=== PATIENT | male | born 1975 | race Caucasian/White ===

== ENCOUNTER 2020-09-22 08:57 | Inpatient (IN) | payer BC, SELFPAY ==
[2020-09-22] VITALS (24 sets, daily range): BP systolic 93–159; BP diastolic 33–130; PULSE 95–132; RESP 13–31; TEMP 35.7–36.9; O2SAT 91–99; BMI 69.9; BMI 69.5; BMI 69.6
--- NOTE | 2020-09-22 09:27 | ED.VIS.GEN ---
History of Present Illness Chief Complaint: Shortness of Breath Informant: Patient Onset: Days Context: Sudden Onset Timing: Continuous Quality: Rhinorrhea, congestion, dyspnea, productive cough dyspnea on exertion Location: Respiratory Current Severity: Mild Maximum Severity: Severe Worsened by: Walking. Patient has to stop after walking 100 yards, which is abnormal fo Relieved by: Nothing Associated Symptoms: No associated fever or chills. No known exposure to anyone infected Narrative: Patient is a 45-year-old male with a BMI of 70.0 who presents with rhinorrhea, congestion, postnasal drainage and productive cough of green-colored sputum for the past several days. He reports dyspnea at rest and dyspnea exertion. 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 He states that everyone is scant at work. He has not been tested for Covid. He denies myalgias or arthralgias. He denies loss of taste or smell. He denies headache. He denies visual, ocular auditory symptoms. He denies myalgias arthralgias. He does have obstructive sleep apnea and reports noncompliance with use of his CPAP machine. He denies history of asthma or COPD. Prior similar symptoms: No Recent Illness/Hospitalization: No Past Medical History - Allergies and Home Meds Allergies/Adverse Reactions: Allergies No Known Allergies Allergy (Verified 09/22/20 08:59) Primary Care Physician: Dieudonne Dinero MD [Primary Care Provider] - Lives: Alone - Patient is . Smoking Status: Never smoker Alcohol: None Drugs: None Review of Systems General: Reports: Malaise. Denies: Chills, Fever, Subjective, Sweats, Weight loss Eyes: Denies: Visual changes - bilaterally, Blurred Vision - bilaterally ENT: Reports: Rhinorrhea, Sore throat. Denies: Bilateral ear pain Cardiovascular: Denies: Chest pain, Palpitations Respiratory: Reports: Dyspnea, Cough, Sputum, Dyspnea on exertion. Denies: Orthopnea, Paroxysmal nocturnal dyspnea Gastrointestinal: Denies: Abdominal pain, Nausea, Vomiting, Diarrhea, Melena, Hematochezia Genitourinary: Denies: Dysuria, Hematuria, Frequency Musculoskeletal: Denies: Myalgias, Arthralgias, Neck pain, Back pain, Swelling, Extremity Pain, -, - Skin: Denies: Rash, Wounds Neurological: Denies: Headache, Weakness, Parasthesia Endocrine: Denies: Polyuria, Polydipsia Hematologic: Denies: Easy bruising, Easy bleeding Physical Exam Vital Signs/Narrative: Vital Signs Temp Pulse Resp BP Pulse Ox 09/22/20 08:59 96.2 F L 95 16 151/102 H 92 Inital Vital Signs reviewed: Yes General: Well nourished, Well developed, Obese, Acute Distress - He is in mild respiratory distress. He is breathing faster than 16 times a minute. Head: Normocephalic, Atraumatic Eyes: Perrl, EOMI. Negative for: Pale conjunctiva, Scleral icterus ENT: Moist mucous membranes, No rhinorrhea, TM's clear Neck: Supple, Nontender, No lymphadenopathy, No JVD, - - There is no inspiratory or expiratory stridor. Trachea is midline. Cardiovascular: Regular rate, Regular rhythm, No murmurs, Normal S1, Normal S2 Respiratory: Chest nontender, Wheezing, Decreased Air Movement. Negative for: No distress, CTA bilaterally Abdomen: Soft, Nontender, Nondistended, Normal bowel sounds Rectal: Deferred Back: Nontender Extremities: Nontender, Edema - Lymphedema bilaterally Skin: Normal color, No rash Neurological: Alert, Oriented x3, Cranial nerves II-XII grossly intact, Normal Strength, Normal Sensation Psychological: Normal affect Diagnostic/Tx/Re-eval Chest X-Ray - ED: 1 View, Read by ED Physician, Normal, Heart, Lungs, Mediastinum, Bony Structures, No Acute Disease, - - Single view portable chest x-ray was interpreted by me at 0950. Impressions Chest X-Ray 09/22/20 09:41 IMPRESSION: No active disease. Electronically Signed: Matheus Lynch MD at 9:55 EDT Tel , Service support , 09/22/20 09:41 Chest 1 View (Portable) [RAD] Stat 09/22/20 09:35 Nasal Secretion SARS-CoV-2 Antigen (Rapid) - Final Laboratory Results 09/22/20 09/22/20 09/22/20 09:25 09:25 09:25 WBC 6.6 RBC 4.79 Hgb 12.8 L Hct 42.1 MCV 87.9 MCH 26.7 L MCHC 30.4 L RDW Std Deviation 49.2 H RDW Coeff of Doming[place] 15.3 H Plt Count 188 MPV 10.5 Immature Gran % (Auto) 0.300 Neut % (Auto) 71.7 H Lymph % (Auto) 10.6 L [place] % (Auto) 10.1 H Eos % (Auto) 6.5 H Baso % (Auto) 0.8 Absolute Neuts (auto) 4.7 Absolute Lymphs (auto) 0.70 L Nucleated RBC % 0 Sodium 137 Potassium 3.9 Chloride 103 Carbon Dioxide 30.0 Anion Gap 4 L BUN 17 Creatinine 0.97 Estim Creat Clear Calc 97.21 Est GFR (MDRD) Af Amer 107 Est GFR (MDRD) Non-Af 88 BUN/Creatinine Ratio 17.6 Glucose 119 H Lactic Acid 1.0 Calcium 8.8 Total Bilirubin 0.70 AST 36 ALT 50 Alkaline Phosphatase 97 Total Protein 7.6 Albumin 3.5 Globulin 4.1 Albumin/Globulin Ratio 0.9 Work-up was unremarkable. When I entered the room to inform him of his test results monitor was beeping and reveals atrial fib with a ventricular rate of 1 55-1 70. A formal 12-lead EKG was ordered. - Rhythm Strip Rhythm Strip: A-fib Rate: 155 Ectopy: PVC(s) - Versus abbarant beats - EKG Initial EKG Interpretation: Atrial Fibrillation - Ventricular rate is 148. QRS duration 90 ms. QT duration 256 ms. [place] is normal. There is no ossific ST-T wave changes which may be rate dependent. - Medical Decision Making Diagnosis includes viral upper respiratory function with bronchospasm, Covid with bronchospasm, pneumonia and purulent bronchitis. Chest x-ray, appropriate labs and Covid test was obtained. Since he does have wheezing he was treated with metered-dose inhaler. Was placed in respiratory isolation. In light of patient's monitor reading atrial fibrillation with a rate between 150 and 170 and heart rate increasing to greater than 200 with minimal movement i.e. getting in and out of bed and concern of when this may of started cardiology was contacted. Discussed treatment with amiodarone versus Cardizem and anticoagulation. After discussion with Dr. Mendes plan is IV Cardizem and drip and Eliquis. 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
[2020-09-22 09:38] LABS: Absolute Neutrophil Count 4.7 X10^3/uL (2.0-7.7); Basophil# 0.05 X10^3/uL; Basophil% 0.8 % (0-1); Eosinophil# 0.43 X10^3/uL; Eosinophils% 6.5 % (0-5); Hematocrit 42.1 % (40-54); Hemoglobin 12.8 g/dL (13.0-16.5); Lymphocyte % 10.6 % (19-41); Mean Corp Hgb Conc 30.4 g/dL (32-36); Mean Corpuscular Hgb 26.7 pg (27.0-32.0); Mean Corpuscular Volume 87.9 fL (80-94); Mean Platelet Vol. 10.5 fl (6.2-12.0); Monocyte# 0.67 X10^3/uL; Monocyte% 10.1 % (0-10); NRBC Flagged by Analyzer 0 % (0-5); Neutrophil # 4.74 X10^3/uL (2.7-7.7); Neutrophil % 71.7 % (47-70); Platelet Count 188 K/mm3 (150-450); RBC Distribution Width CV 15.3 % (11.6-14.6); RBC Distribution Width SD 49.2 fl (35.1-43.9); Red Blood Count 4.79 M/mm3 (4.6-6.2); White Blood Count 6.6 K/mm3 (4.4-11.0)
--- NOTE | 2020-09-22 09:41 | RAD_ITS ---
STUDY: X-RAY CHEST REASON FOR EXAM: Male, 45 years old. cough TECHNIQUE: Single AP portable view of the chest. COMPARISON: None. FINDINGS: The lungs are clear and expanded. There is no demonstrated pleural abnormality. There is moderate cardiac enlargement. Normal mediastinum and yanci. Normal visualized pulmonary arteries. Normal visualized aortic arch and descending thoracic aorta. Normal visualized thoracic spine. Normal visualized ribs, clavicles, and shoulders. There is no demonstrated abnormality of the visualized soft tissue structures of the upper abdomen. RAD/Chest 1 View (Portable) IMPRESSION: No active disease. Electronically Signed: Matheus Lynch MD at 9:55 EDT Tel , Service support ,
[2020-09-22 09:54] LABS: ALB/GLOB Ratio 0.9 RATIO (0.9-2.4); AST(SGOT) 36 U/L (15-37); Alanine Aminotransfer ALT/SGPT 50 U/L (16-61); Albumin, Serum 3.5 g/dL (3.2-5.0); Alkaline Phosphatase 97 U/L (45-117); Anion Gap 4 (5-15); BUN 17 mg/dL (7-18); BUN/Creat Ratio 17.6 RATIO (10-20); Calcium,Total 8.8 mg/dL (8.5-10.1); Chloride 103 mmol/L (98-107); Creatinine, Serum 0.97 mg/dL (0.70-1.30); EST Glomerular Filtration Rate 88 mL/min (>60); Est Glom Filt Rate - Afr Amer 107 mL/min (>60); Estimated Creatinine Clearance 97.21 ml/min; Globulin 4.1 g/dL (2.2-4.2); Glucose 119 mg/dL (74-106); Potassium 3.9 mmol/L (3.5-5.1); Protein, Total 7.6 g/dL (6.4-8.2); Sodium Level 137 mmol/L (136-145)
--- NOTE | 2020-09-22 10:35 | EKG12_ITS ---
Test Reason : SOB Blood Pressure : / mmHG Vent. Rate : 148 BPM Atrial Rate : 147 BPM P-R Int : 000 ms QRS Dur : 090 ms QT Int : 256 ms P-R-T Axes : 000 077 -06 degrees QTc Int : 401 ms Atrial fibrillation Nonspecific T wave abnormality Abnormal ECG Confirmed by MANOHAR RODRÍGUEZ, BEV ([id number]), electronic news gathering editor FINESSE DURAN ([id number]) on 09/26/2020 8:26:49 AM Referred By: PEDRO Confirmed By:BEV VILLELA MD
--- NOTE | 2020-09-22 11:08 | HP.PCM_ITS ---
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 use (3) Acute bronchitis with bronchospasm Status: Acute (4) Morbid obesity with BMI of 70 and over, adult Status: Chronic (5) Obstructive sleep apnea Status: Chronic (6) Hypertension Status: Chronic Qualifiers: Hypertension type: essential hypertension Qualified Code(s): I10 - Essential (primary) hypertension History of Present Illness Date of Admission: 09/22/20 Chief Complaint: Rapid heart rate The patient is a 45 year old M with past medical history significant for obesity with BMI of 70, newly diagnosed diabetes mellitus type 2 essential hypertension who was sent from his primary care physician's with rapid heart rate. Patient was apparently being evaluated for acute bronchitis as well as new onset diabetes. While in the office patient was found to be tachycardic. Apart from shortness of breath patient denied any feeling of palpitations. In the ED patient was found to be in A. fib with RVR with heart rate as high as 160 did receive Cardizem bolus and subsequently started on IV Cardizem and admitted to monitored bed for further management Past Medical History Past Medical History (Chronic Problems): Chronic Problems Hypertension (Chronic) Morbid obesity with BMI of 70 and over, adult (Chronic) Obstructive sleep apnea (Chronic) DM2 (diabetes mellitus, type 2) (Chronic) Allergies No Known Allergies Allergy (Verified 09/22/20 08:59) Lives: Alone - Patient is . Smoking Status: Never smoker Alcohol: None Drugs: None - *Family History Maternal History Items: Cancer - Breast cancer; alive Review of Systems Constitutional: Denies: Anorexia, Chills, Fever, Night Sweats, Weight Change HEENT: Denies: Head Aches, Sinus Congestion, Sinus Drainage Cardiovascular: Denies: Chest Pain, Orthopnea, Palpitations, Paroxysmal Noc. Dyspnea Respiratory: Reports: Shortness of breath upon exertion, Wheezing Gastrointestinal: Denies: Abdominal Pain, Hematemesis, Hematochezia, Nausea, Melena, Vomiting Genitourinary: Denies: Dysuria, Frequency, Hematuria, Urgency Musculoskeletal: Denies: Joint Pain, Joint Tenderness Skin: Denies: Rash Neurological: Denies: Focal weakness, Numbness, Tingling Psychiatric: Denies: Homicidal Ideations, Suicidal Ideations Hematologic/ Lymphatic: Denies: Easy Bruising, Easy Bleeding VTE Information - Inpt Only VTE Present on Admission: No VTE Mechan Device Prophylaxis: None VTE Pharm Prophylaxis ordered?: Yes Patient Problems: Active and Suspected Problems New onset atrial fibrillation (Acute) Acute bronchitis with bronchospasm (Acute) Objective: GENERAL: cooperative HEENT: Atraumatic; EYES; Anicteric, Normal Conjunctiva NECK; supple, normal thyroid, RESPIRATORY: Diminished to auscultation CARDIOVASCULAR: Irregularly irregular, tachycardic GI: soft, normoactive bowel sounds, : No Renal angle tenderness; EXTREMITIES: No edema, no clubbing, MUSCULOSKELETAL: no muscle waisting NEURO: Awake; no lateralizing signs. SKIN: No Rash PSYCH; Flat affect - Physical Exam Vitals/I&O's: Vital Signs Temp Pulse Resp BP Pulse Ox 96.2 F L 95 16 151/102 H 92 09/22/20 08:59 09/22/20 08:59 09/22/20 08:59 09/22/20 08:59 09/22/20 08:59 Oxygen Delivery Method Room Air Weight: 221.3 kg Body Mass Index (BMI) 69.9 Microbiology Past 72 Hours 09/22/20 09:35 Nasal Secretion SARS-CoV-2 Antigen (Rapid) - Final Laboratory Results 09/22/20 09:25: WBC 6.6, RBC 4.79, Hgb 12.8 L, Hct 42.1, MCV 87.9, MCH 26.7 L, MCHC 30.4 L, RDW Std Deviation 49.2 H, RDW Coeff of Dominga 15.3 H, Plt Count 188, MPV 10.5, Immature Gran % (Auto) 0.300, Neut % (Auto) 71.7 H, Lymph % (Auto) 10.6 L, [place] % (Auto) 10.1 H, Eos % (Auto) 6.5 H, Baso % (Auto) 0.8, Absolute Neuts (auto) 4.7, Absolute Lymphs (auto) 0.70 L, Nucleated RBC % 0 09/22/20 09:25: Sodium 137, Potassium 3.9, Chloride 103, Carbon Dioxide 30.0, Anion Gap 4 L, BUN 17, Creatinine 0.97, Estim Creat Clear Calc 97.21, Est GFR (MDRD) Af Amer 107, Est GFR (MDRD) Non-Af 88, BUN/Creatinine Ratio 17.6, Glucose 119 H, Calcium 8.8, Total Bilirubin 0.70, AST 36, ALT 50, Alkaline Phosphatase 97, Total Protein 7.6, Albumin 3.5, Globulin 4.1, Albumin/Globulin Ratio 0.9 09/22/20 09:25: Lactic Acid 1.0 09/22/20 09:25: Troponin I Pending, TSH Pending Current Medications Diltiazem HCl 125 mg/ Dextrose 125 mls @ 5 mls/hr IV .Q25H ADRIEL; Protocol Assessment/Plan All Active Problems New onset atrial fibrillation (Acute) Acute bronchitis with bronchospasm (Acute) Patient is a 45-year-old gentleman admitted with rapid heart rate 1. New onset A. fib with RVR ?Admitted to monitored bed patient started on Cardizem drip titrated to keep rate less than 100. As part of patient's management ordered 2D echo, D-dimer, TSH, serial cardiac enzymes and consultation placed to cardiology. Patient was also placed on systemic anticoagulation with Eliquis 2. Acute bronchitis ?Patient rapid SARS-CoV-2 antigen test was negative in the ED plan is to treat patient symptomatically 3. Diabetes mellitus type 2 ?New onset. Patient was prescribed Metformin at home held placed on long-acting insulin and Accu-Cheks before meals and at bedtime with sliding scale coverage. Also ordered hemoglobin A1c 4. Essential hypertension ?Patient blood pressure controlled plan is to continue with home meds once reconciled 5. Morbid obesity ?With BMI of 70; Patient was advised on weight reduction. Was also instructed to follow-up with PCP for possible referral for gastric bypass 6. Obstructive sleep apnea ?Patient apparently not on any CPAP therapy at night 7. DVT prophylaxis ?Placed on Eliquis 5 mg p.o. twice daily as part of management of his A. fib Inpatient E&M: [id number] In Hosp L3
[2020-09-22 11:18] LABS: Thyroid Stim Hormone (TSH) 1.72 uIU/mL (0.358-3.74)
[2020-09-22] MEDS: dilTIAZem 25 MG/5 ML Vial 20 MG IV BOLUS (11:37)
[2020-09-22] MEDS: APIXABAN 5 MG TABLET PO ×2 (11:45→21:14)
--- NOTE | 2020-09-22 12:02 | ECHOCS_ITS ---
Reason For Study: AFIB Procedure This was a 2D Doppler, Color Flow transthoracic echocardiogram. The study was technically difficult. Contrast injection was performed. Exam performed portable in patient room. Left Ventricle Normal LV size. Moderate concentric left ventricular hypertrophy. Left ventricular systolic function is normal. The estimated ejection fraction is 55 %. Unable to assess diastolic dysfunction. No regional wall motion abnormalities noted. Right Ventricle Normal RV size. Normal systolic function. Atria The left atrium is mildly enlarged. Normal right atrium. No doppler evidence for ASD. Mitral Valve There is no mitral annular calcification. Normal mitral valve. Trivial mitral valve insufficiency. Tricuspid Valve Normal tricuspid valve. Trivial tricuspid valve insufficiency. Right ventricular systolic pressure estimated to be 37 mmHg. Aortic Valve Trisinus/trileaflet aortic valve. Normal aortic valve. Pulmonic Valve The pulmonic valve is not well visualized. Great Vessels Borderline enlarge aortic root. Pericardium/Pleural No pericardial effusion. Medication Diluted definity 3.5ml given slow IV push to enhance endocardial definition. MMode/2D Measurements & Calculations LVIDd: 5.4 cm IVSd: 1.5 cm Ao root diam: 3.9 cm LVIDs: 4.1 cm LVPWd: 1.5 cm RVDd: 4.4 cm FS: 24.0 % LAV(MOD-bp): 97.9 ml LA A4 area: 28.3 cm2 LA dimension(2D): 5.5 cm LAV(MOD-bp) Indexed: 32.1 ml/m2 LAV(MOD-sp2): 102.5 ml LAV(MOD-sp4): 92.3 ml RA A4 area: 30.9 cm2 Time Measurements MV dec time: 0.18 sec Doppler Measurements & Calculations MV E max alvin: 112.3 cm/sec Ao V2 max: 126.8 cm/sec LV V1 max: 86.2 cm/sec Ao max P.5 mmHg LV V1 max P.0 mmHg PA V2 max: 103.8 cm/sec TR max alvin: 290.7 cm/sec TR max P.8 mmHg ECHO/Echo Complete W/ Contrast Interpretation Summary The study was technically difficult. Contrast injection was performed. Left ventricular systolic function is normal. The estimated ejection fraction is 55 %. Moderate concentric left ventricular hypertrophy. The left atrium is mildly enlarged. Trivial mitral valve insufficiency. Trivial tricuspid valve insufficiency. Borderline enlarge aortic root. Right ventricular systolic pressure estimated to be 37 mmHg. Unable to assess diastolic dysfunction. Ordering Physician: Stalin Thorne Referring Physician: RAHAT WISDOM Performed By: Dorene Powers, MAIACS, RVT
[2020-09-22 12:29] LABS: D-Dimer Quantitative (DVT/PE) 0.92 FEU/ug/m (0.27-0.49)
--- NOTE | 2020-09-22 12:31 | CT_ITS ---
STUDY: CTA CHEST REASON FOR EXAM: Male, 45 years old. ELEVATED D DIMER RADIATION DOSAGE (If Supplied By Facility): CTDIvol = ( 35.72 ) mGy, DLP = ( 741.42 ) mGycm TECHNIQUE: The examination was performed with the intravenous administration of IV 100mL Isovue-370. Post-processing of the angiographic images was performed, with multiplanar reformation and 3D reconstruction. Individualized dose optimization techniques were used for this CT. COMPARISON: None. FINDINGS: Normal enhancement of the main pulmonary artery and right and left pulmonary arteries. Normal enhancement of the bilateral peripheral pulmonary arteries. There is no demonstrated pulmonary embolism. Normal thoracic aorta and visualized great vessels. There is no demonstrated aortic dissection. Normal heart and pericardium. Several small mediastinal lymph nodes which are likely reactive. Normal hilar regions. Normal visualized trachea and bronchi. The lungs are well expanded. Normal pulmonary parenchyma. Normal pleura. Normal chest wall structures. Normal osseous structures. Normal visualized upper abdomen. CT/CTA Chest W/WO Contrast IMPRESSION: Normal CTA chest examination, without a demonstrated pulmonary embolism or arterial dissection. Electronically Signed: Matheus Lynch MD at 13:48 EDT Tel , Service support ,
[2020-09-22] MEDS: guaiFENesin 10 ML UDC (200MG/10ML) 20 ML PO ×3 (12:41→21:13)
--- NOTE | 2020-09-22 13:49 | PCM.CONS.C ---
Reason for Consult Date of Consultation: 09/22/20 Reason for Consultation: Atrial fibrillation with rapid ventricular response. History of Present Illness: The patient is a 45 year old M [with diabetes, morbid obesity apparently presenting to the ER for bronchitis-like symptoms. Was found to be in A. fib with RVR. Patient has been admitted to the PCU for further management. He is on a Cardizem drip. ] Past Medical History Allergies/Adverse Reactions: Allergies No Known Allergies Allergy (Verified 09/22/20 08:59) Home Medications: Ambulatory Orders Medication Instructions Recorded Ergocalciferol (Vitamin D2) 1,250 mcg PO QWEEK 09/22/20 [Vitamin D2] Lisinopril [Zestril] 10 mg PO DAILY 09/22/20 Metformin HCl [Metformin ER 500 mg PO DAILY 09/22/20 Gastric] Past Medical History (Chronic Problems): Chronic Problems Hypertension (Chronic) Morbid obesity with BMI of 70 and over, adult (Chronic) Obstructive sleep apnea (Chronic) DM2 (diabetes mellitus, type 2) (Chronic) - *Family History Maternal History Items: Cancer - Breast cancer; alive Lives: Alone - Patient is . Smoking Status: Former smoker Alcohol: None Drugs: None Objective: Vital Signs Temp Pulse Resp BP Pulse Ox 98.1 F 121 H 24 H 105/78 97 09/22/20 12:12 09/22/20 13:30 09/22/20 13:30 09/22/20 13:30 09/22/20 13:36 Oxygen Delivery Method Room Air Weight: 485 lb Body Mass Index (BMI) 69.5 Intake and Output for Last 24 Hours 09/20/20 09/21/20 09/22/20 23:59 23:59 23:59 Intake Total 18.33 / 18.33 Balance 18.33 / 18.33 General: Awake, Alert, Oriented x 3 HEENT: Atraumatic Oral: Moist Mucosa Neck: Supple Cardiovascular: Irregular Rhythm Abdomen: Obese Psych/Mental Status: Appropriate 09/22/20 09:25: WBC 6.6, RBC 4.79, Hgb 12.8 L, Hct 42.1, MCV 87.9, MCH 26.7 L, MCHC 30.4 L, Plt Count 188, MPV 10.5, Immature Gran % (Auto) 0.300, Neut % (Auto) 71.7 H, Lymph % (Auto) 10.6 L, [place] % (Auto) 10.1 H, Eos % (Auto) 6.5 H, Baso % (Auto) 0.8, Absolute Neuts (auto) 4.7, Nucleated RBC % 0 09/22/20 09:25: Sodium 137, Potassium 3.9, Chloride 103, Carbon Dioxide 30.0, Anion Gap 4 L, BUN 17, Creatinine 0.97, Est GFR (MDRD) Af Amer 107, Est GFR (MDRD) Non-Af 88, BUN/Creatinine Ratio 17.6, Glucose 119 H, Calcium 8.8, Total Bilirubin 0.70 09/22/20 09:25: Lactic Acid 1.0 09/22/20 09:25: Troponin I < 0.015 09/22/20 09:25: D-Dimer Quant (PE/DVT) 0.92 H* 09/22/20 12:46: Troponin I < 0.015 Rhythm: EKG: ECHO: Stress Test: Cardiac Cath: PCI: CT Surgery: Holter monitor: EPS: PPM: CXR: Chest CT Scan: Assessment/Plan Atrial fibrillation: Titrate Cardizem drip for heart rate control. We will start the patient on p.o. Cardizem. We will also stop the Lovenox and start Eliquis. Discussed risks and benefits with the patient.
[2020-09-22 16:36] LABS: Bedside Glucose 92 mg/dL (70-110)
[2020-09-22] MEDS: dilTIAZem 60 MG Tablet PO ×2 (17:27→23:32)
[2020-09-22 21:50] LABS: Bedside Glucose 95 mg/dL (70-110)
[2020-09-22] MEDS: Albuterol 2.5 MG/3 ML VIAL.NEB. INHALATION (22:47)
[2020-09-22] MEDS: Budesonide Respules 0.5 MG/2 ML AMPUL.NEB. INHALATION (22:47)
[2020-09-23] VITALS (26 sets, daily range): BP systolic 100–140; BP diastolic 50–97; PULSE 77–102; RESP 16–26; TEMP 36.4–36.8; O2SAT 92–99
[2020-09-23] MEDS: MethylPREDNISolone 125 MG/2 ML Vial IV (00:22)
[2020-09-23] MEDS: 0.9% Saline Lock 10 ML Syringe IV ×3 (00:22→14:05)
[2020-09-23 05:01] LABS: Absolute Lymphocyte Count 0.45 X10^3/uL (0.83-4.51); Absolute Neutrophil Count 6.7 X10^3/uL (2.0-7.7); Basophil# 0.03 X10^3/uL; Basophil% 0.4 % (0-1); Eosinophil# 0.09 X10^3/uL; Eosinophils% 1.2 % (0-5); Hemoglobin 12.9 g/dL (13.0-16.5); Lymphocyte # 0.45 X10^3/ul (0.83-4.51); Lymphocyte % 5.9 % (19-41); Mean Corpuscular Hgb 27.3 pg (27.0-32.0); Mean Corpuscular Volume 91.1 fL (80-94); Monocyte# 0.27 X10^3/uL; Monocyte% 3.6 % (0-10); NRBC Flagged by Analyzer 0 % (0-5); Neutrophil # 6.71 X10^3/uL (2.7-7.7); Neutrophil % 88.4 % (47-70); POSITIVE DIFFERENTIAL YES; Platelet Count 197 K/mm3 (150-450); RBC Distribution Width CV 15.6 % (11.6-14.6); RBC Distribution Width SD 52.3 fl (35.1-43.9); Red Blood Count 4.72 M/mm3 (4.6-6.2); White Blood Count 7.6 K/mm3 (4.4-11.0)
[2020-09-23] MEDS: dilTIAZem 60 MG Tablet PO ×3 (05:01→17:07)
[2020-09-23] MEDS: guaiFENesin 10 ML UDC (200MG/10ML) 20 ML PO ×3 (05:07→20:54)
[2020-09-23 05:17] LABS: Anion Gap 3 (5-15); BUN 17 mg/dL (7-18); BUN/Creat Ratio 18.3 RATIO (10-20); Calcium,Total 8.8 mg/dL (8.5-10.1); Chloride 101 mmol/L (98-107); Creatinine, Serum 0.93 mg/dL (0.70-1.30); EST Glomerular Filtration Rate 93 mL/min (>60); Est Glom Filt Rate - Afr Amer 112 mL/min (>60); Estimated Creatinine Clearance 101.39 ml/min; Glucose 148 mg/dL (74-106); Magnesium 2.3 mg/dL (1.6-2.6); Phosphorus 4.4 mg/dL (2.5-4.9); Potassium 4.6 mmol/L (3.5-5.1); Sodium Level 135 mmol/L (136-145)
[2020-09-23 05:22] LABS: Differential Indicated SCAN CRITERIA MET
[2020-09-23] MEDS: Insulin Lispro 100 UNIT/ML INSULN.PEN SC ×4 (06:38→21:32)
[2020-09-23 06:55] LABS: Bedside Glucose 172 mg/dL (70-110)
[2020-09-23] MEDS: Budesonide Respules 0.5 MG/2 ML AMPUL.NEB. INHALATION ×2 (06:59→18:56)
[2020-09-23] MEDS: Albuterol 2.5 MG/3 ML VIAL.NEB. INHALATION (06:59)
[2020-09-23] MEDS: APIXABAN 5 MG TABLET PO ×2 (09:42→21:21)
--- NOTE | 2020-09-23 10:29 | PN_ITS ---
Patient Problems: Active and Suspected Problems New onset atrial fibrillation (Acute) Acute bronchitis with bronchospasm (Acute) Reason for Visit: New onset A. fib with RVR Subjective: Patient is a 45-year-old gentleman admitted with A. fib with RVR started on Cardizem drip admitted to monitored bed. Cardizem drip has since been weaned off patient currently on p.o. Cardizem. Patient remains in A. fib. Had elevated D-dimer CT of the chest subsequently ordered was negative for PE Objective: GENERAL: cooperative HEENT: Atraumatic; EYES; Anicteric, Normal Conjunctiva NECK; supple, normal thyroid, RESPIRATORY: Diminished to auscultation CARDIOVASCULAR: Irregularly irregular, GI: soft, normoactive bowel sounds, : No Renal angle tenderness; EXTREMITIES: No edema, no clubbing, MUSCULOSKELETAL: no muscle waisting NEURO: Awake; no lateralizing signs. SKIN: No Rash PSYCH; Flat affect Vitals/I&O's: Vital Signs Temp Pulse Resp BP Pulse Ox 97.9 F 94 24 H 120/62 94 09/23/20 06:00 09/23/20 10:00 09/23/20 10:00 09/23/20 10:00 09/23/20 10:00 Oxygen Flow Rate (L/min) 5 Oxygen Delivery Method Nasal Cannula Weight: 219.992 kg Body Mass Index (BMI) 69.5 Intake and Output for Last 24 Hours 09/21/20 09/22/20 09/23/20 23:59 23:59 23:59 Intake Total 820.83 / 1195.83 645.00 / 645.00 Output Total 0 / 0 Balance 820.83 / 1195.83 645.00 / 645.00 Microbiology Past 72 Hours 09/22/20 09:35 Nasal Secretion SARS-CoV-2 Antigen (Rapid) - Final Laboratory Results 09/22/20 09:25: Troponin I < 0.015, TSH 1.72 09/22/20 09:25: D-Dimer Quant (PE/DVT) 0.92 H* 09/22/20 12:46: Troponin I < 0.015 09/22/20 15:40: Troponin I < 0.015 09/22/20 16:30: POC Glucose 92 09/22/20 21:08: POC Glucose 95 09/23/20 04:45: WBC 7.6, RBC 4.72, Hgb 12.9 L, Hct 43.0, MCV 91.1, MCH 27.3, MC HC 30.0 L, RDW Std Deviation 52.3 H, RDW Coeff of Dominga 15.6 H, Plt Count 197, MPV 10.0, Immature Gran % (Auto) 0.500, Neut % (Auto) 88.4 H, Lymph % (Auto) 5.9 L, [place] % (Auto) 3.6, Eos % (Auto) 1.2, Baso % (Auto) 0.4, Absolute Neuts (auto) 6.7, Absolute Lymphs (auto) 0.45 L, Nucleated RBC % 0 09/23/20 04:45: Sodium 135 L, Potassium 4.6, Chloride 101, Carbon Dioxide 31.0, Anion Gap 3 L, BUN 17, Creatinine 0.93, Estim Creat Clear Calc 101.39, Est GFR (MDRD) Af Amer 112, Est GFR (MDRD) Non-Af 93, BUN/Creatinine Ratio 18.3, Glucose 148 H, Calcium 8.8, Phosphorus 4.4, Magnesium 2.3 09/23/20 06:35: POC Glucose 172 H Current Medications Acetaminophen (Acetaminophen 325 Mg Tablet) 650 mg PO Q6H PRN PRN PRN Reason: Pain Score 1-10/Temp > 100.7 F Al Hydroxide/Mg Hydroxide (Mag Hydrox/Al Hydrox/Simeth 30 Ml Udc) 30 ml PO Q6H PRN PRN PRN Reason: Gastric Burning Albuterol Sulfate (Albuterol 2.5 Mg/3 Ml Vial.Neb.) 2.5 mg INHALATION Q2H PRN PRN PRN Reason: SOB/Wheezing Last Admin: 09/23/20 06:59 Dose: 2.5 mg Documented by: Apixaban (Apixaban 5 Mg Tablet) 5 mg PO BID [facility] Last Admin: 09/23/20 09:42 Dose: 5 mg Documented by: Budesonide (Budesonide Respules 0.5 Mg/2 Ml Ampul.Neb.) 0.5 mg INHALATION BID.RT [facility] Last Admin: 09/23/20 06:59 Dose: 0.5 mg Documented by: Dextrose (Dextrose 50%-Water 25 Gm/50 Ml Disp.Syrin) 0 gm IV X1 PRN; Protocol PRN Reason: Hypoglycemia Diltiazem HCl (Diltiazem 60 Mg Tablet) 60 mg PO Q6 [facility] TO [facility] Last Admin: 09/23/20 05:01 Dose: 60 mg Documented by: Glucagon (Glucagon 1 Mg/Ml Syringe) 1 mg IM .X1 PRN PRN Reason: Hypoglycemia Guaifenesin (Guaifenesin 10 Ml Udc (200mg/10ml)) 20 ml PO Q4H PRN PRN PRN Reason: COUGH Last Admin: 09/23/20 05:07 Dose: 20 ml Documented by: Hydralazine HCl (Hydralazine 20 Mg/Ml Vial) 10 mg IV Q4H PRN PRN PRN Reason: Hypertensive Emergency Diltiazem HCl 125 mg/ Dextrose 125 mls @ 5 mls/hr IV .Q25H [facility]; Protocol Last Titration: 09/23/20 10:00 Dose: 15 mg/hr, 15 mls/hr Documented by: Sodium Chloride () 250 mls @ 15 mls/hr IV .[id number] PRN PRN Reason: Saline Flush Sodium Chloride () 250 mls @ 15 mls/hr IV .[id number] PRN PRN Reason: Additional IVPB Infusion Insulin Glargine (Insulin Glargine 100 Units/Ml Pen) 10 units SC QHS [facility] Last Admin: 09/22/20 22:34 Dose: Not Given Documented by: Insulin Human Lispro (Insulin Lispro 100 Unit/Ml Insuln.Pen) 0 unit SC ACHS [facility]; Protocol Last Admin: 09/23/20 06:38 Dose: 2 units Documented by: Melatonin (Melatonin 3 Mg Tablet) 3 mg PO QHS PRN PRN PRN Reason: INSOMNIA Methylprednisolone (Methylprednisolone 40 Mg/Ml Vial) 40 mg IV Q8 [facility] Last Admin: 09/23/20 05:02 Dose: 40 mg Documented by: Nitroglycerin (Nitroglycerin (Inpatient Use) 0.4 Mg Tab.Subl) 0.4 mg SL Q5M PRN PRN Reason: CARDIAC/CHEST PAIN Ondansetron HCl (Ondansetron 4 Mg/2 Ml Vial) 4 mg IV Q8H PRN PRN PRN Reason: NAUSEA/VOMITING Oxycodone HCl (Oxycodone 5 Mg Tablet) 5 mg PO Q4H PRN PRN PRN Reason: Pain Score 4-5 Oxycodone HCl (Oxycodone 5 Mg Tablet) 10 mg PO Q4H PRN PRN PRN Reason: Pain Score 6-10 Senna/Docusate Sodium (Senna/Docusate Sodium 1 Tablet) 2 tablet PO BID PRN PRN PRN Reason: Constipation Sodium Chloride (0.9% Saline Lock 10 Ml Syringe) 10 - 40 ml IV UD PRN PRN Reason: SALINE FLUSH Last Admin: 09/23/20 05:02 Dose: 10 ml Documented by: STROKE Vital Signs/Narrative: Vital Signs Pulse Resp BP Pulse Ox 09/23/20 10:00 94 24 H 120/62 94 09/23/20 09:00 92 22 H 114/65 93 09/23/20 08:00 87 19 H 130/95 H 96 09/23/20 07:00 78 21 H 122/78 H 96 09/23/20 06:59 102 H 20 H 94 Medical Necessity - Tobacco Use Smoking Status: Former smoker Assessment/Plan All Active Problems New onset atrial fibrillation (Acute) Acute bronchitis with bronchospasm (Acute) Patient is a 45-year-old gentleman admitted with rapid heart rate 1. New onset A. fib with RVR ?Admitted to monitored bed patient started on Cardizem drip titrated to keep rate less than 100. As part of patient's management ordered 2D echo, D-dimer, TSH, serial cardiac enzymes and consultation placed to cardiology. Patient was also placed on systemic anticoagulation with Eliquis -09/23/2020 patient is a 45-year-old gentleman admitted with A. fib with RVR started on Cardizem drip admitted to monitored bed. Cardizem drip has since been weaned off patient currently on p.o. Cardizem. Patient remains in A. fib. Had elevated D-dimer CT of the chest subsequently ordered was negative for PE scheduled to undergo 2D echo on 09/24/2020 2. Acute bronchitis ?Patient rapid SARS-CoV-2 antigen test was negative in the ED plan is to treat patient symptomatically 3. Diabetes mellitus type 2 ?New onset. Patient was prescribed Metformin at home held placed on long-acting insulin and Accu-Cheks before meals and at bedtime with sliding scale coverage. Also ordered hemoglobin A1c 4. Essential hypertension ?Patient blood pressure controlled plan is to continue with home meds once reconciled 5. Morbid obesity ?With BMI of 70; Patient was advised on weight reduction. Was also instructed to follow-up with PCP for possible referral for gastric bypass 6. Obstructive sleep apnea ?Patient apparently not on any CPAP therapy at night 7. DVT prophylaxis ?Placed on Eliquis 5 mg p.o. twice daily as part of management of his A. fib Inpatient E&M: 73985 Subs Hosp L2
[2020-09-23 11:32] LABS: Hemoglobin A1c 6.4 % (3.8-5.6)
[2020-09-23 11:41] LABS: Bedside Glucose 233 mg/dL (70-110)
[2020-09-23 16:56] LABS: Bedside Glucose 189 mg/dL (70-110)
--- NOTE | 2020-09-23 19:51 | PCM.PN.CARD ---
Subjectve: Patient is doing well. He is off Cardizem drip. Objective: Vital Signs Temp Pulse Resp BP Pulse Ox 97.6 F L 95 19 H 109/86 H 95 09/23/20 14:00 09/23/20 17:00 09/23/20 17:00 09/23/20 17:00 09/23/20 17:00 Oxygen Flow Rate (L/min) 3 Oxygen Delivery Method Nasal Cannula Weight: 484 lb 15.989 oz Body Mass Index (BMI) 69.5 Intake and Output for Last 24 Hours 09/21/20 09/22/20 09/23/20 23:59 23:59 23:59 Intake Total 820.83 / 1195.83 1220.00 / 1220.00 Output Total 0 / 0 Balance 820.83 / 1195.83 1220.00 / 1220.00 General: Awake, Alert, Oriented x 3 HEENT: Atraumatic Oral: Moist Mucosa Neck: Supple Cardiovascular: Irregular Rhythm Abdomen: Obese 09/23/20 04:44: Hemoglobin A1c 6.4 H 09/23/20 04:45: WBC 7.6, RBC 4.72, Hgb 12.9 L, Hct 43.0, MCV 91.1, MCH 27.3, MCHC 30.0 L, Plt Count 197, MPV 10.0, Immature Gran % (Auto) 0.500, Neut % (Auto) 88.4 H, Lymph % (Auto) 5.9 L, [place] % (Auto) 3.6, Eos % (Auto) 1.2, Baso % (Auto) 0.4, Absolute Neuts (auto) 6.7, Nucleated RBC % 0 09/23/20 04:45: Sodium 135 L, Potassium 4.6, Chloride 101, Carbon Dioxide 31.0, Anion Gap 3 L, BUN 17, Creatinine 0.93, Est GFR (MDRD) Af Amer 112, Est GFR (MDRD) Non-Af 93, BUN/Creatinine Ratio 18.3, Glucose 148 H, Calcium 8.8, Phosphorus 4.4, Magnesium 2.3 Rhythm: EKG: ECHO: Stress Test: Cardiac Cath: PCI: CT Surgery: Holter monitor: EPS: PPM: CXR: Chest CT Scan: Medical Necessity - Tobacco Use Smoking Status: Former smoker Assessment/Plan Atrial fibrillation: Continue Cardizem and Eliquis.Will increase Cardizem to 90 mg every 6 hours. Patient would benefit from sleep study as an outpatient.Explained this to the patient. Patient understands and agrees to look into it.
[2020-09-23 22:46] LABS: Bedside Glucose 202 mg/dL (70-110)
[2020-09-23] MEDS: dilTIAZem 30 MG Tablet 90 MG PO (23:35)
[2020-09-24] VITALS (14 sets, daily range): BP systolic 120–150; BP diastolic 66–103; PULSE 87–112; RESP 16–22; TEMP 36.1–36.8; O2SAT 90–96
[2020-09-24] MEDS: dilTIAZem 30 MG Tablet 90 MG PO ×2 (05:08→12:22)
[2020-09-24] MEDS: Nystatin Powder 15gm Bottle 1 APPLIC TOPICAL ×2 (05:09→20:35)
[2020-09-24 05:20] LABS: Absolute Lymphocyte Count 0.56 X10^3/uL (0.83-4.51); Absolute Neutrophil Count 11.1 X10^3/uL (2.0-7.7); Basophil# 0.01 X10^3/uL; Basophil% 0.1 % (0-1); Differential Indicated SCAN CRITERIA MET; Hematocrit 42.6 % (40-54); Hemoglobin 12.6 g/dL (13.0-16.5); Lymphocyte # 0.56 X10^3/ul (0.83-4.51); Lymphocyte % 4.6 % (19-41); Mean Corp Hgb Conc 29.6 g/dL (32-36); Mean Corpuscular Hgb 26.6 pg (27.0-32.0); Mean Corpuscular Volume 89.9 fL (80-94); Mean Platelet Vol. 10.2 fl (6.2-12.0); Monocyte# 0.54 X10^3/uL; Monocyte% 4.4 % (0-10); NRBC Flagged by Analyzer 0 % (0-5); Neutrophil # 11.08 X10^3/uL (2.7-7.7); Neutrophil % 90.5 % (47-70); POSITIVE DIFFERENTIAL YES; Platelet Count 226 K/mm3 (150-450); RBC Distribution Width CV 15.1 % (11.6-14.6); RBC Distribution Width SD 49.5 fl (35.1-43.9); Red Blood Count 4.74 M/mm3 (4.6-6.2); White Blood Count 12.2 K/mm3 (4.4-11.0)
[2020-09-24 05:35] LABS: Anion Gap 3 (5-15); BUN 24 mg/dL (7-18); BUN/Creat Ratio 28.1 RATIO (10-20); Calcium,Total 8.6 mg/dL (8.5-10.1); Chloride 99 mmol/L (98-107); Creatinine, Serum 0.85 mg/dL (0.70-1.30); EST Glomerular Filtration Rate 102 mL/min (>60); Est Glom Filt Rate - Afr Amer 123 mL/min (>60); Estimated Creatinine Clearance 110.93 ml/min; Glucose 156 mg/dL (74-106); Potassium 4.9 mmol/L (3.5-5.1); Sodium Level 132 mmol/L (136-145)
[2020-09-24] MEDS: Insulin Lispro 100 UNIT/ML INSULN.PEN SC ×4 (06:24→20:34)
[2020-09-24] MEDS: Acetaminophen 325 MG Tablet 650 MG PO (06:34)
[2020-09-24 06:36] LABS: Bedside Glucose 167 mg/dL (70-110)
[2020-09-24] MEDS: Budesonide Respules 0.5 MG/2 ML AMPUL.NEB. INHALATION (06:49)
[2020-09-24] MEDS: APIXABAN 5 MG TABLET PO ×2 (08:41→20:33)
--- NOTE | 2020-09-24 09:38 | PN.CARD_ITS ---
Subjectve: The patient states that overall he believes he feels somewhat better since being hospitalized. Objective: Vital Signs Temp Pulse Resp BP Pulse Ox 98.0 F 105 H 18 138/94 H 96 09/24/20 08:32 09/24/20 08:32 09/24/20 08:32 09/24/20 08:32 09/24/20 08:32 Oxygen Flow Rate (L/min) 3 Oxygen Delivery Method Nasal Cannula Weight: 484 lb 15.989 oz Body Mass Index (BMI) 69.5 Intake and Output for Last 24 Hours 09/22/20 09/23/20 09/24/20 23:59 23:59 23:59 Intake Total 820.83 / 1195.83 1520.00 / 1520.00 Output Total 0 / 0 Balance 820.83 / 1195.83 1520.00 / 1520.00 General: Awake, Alert, Oriented x 3, Cooperative, No Acute Distress, Obese HEENT: Atraumatic, Normocephalic, PERRL, EOMI, Sclera Non Icteric Neck: Supple, No JVD Lungs: Rhonchi Cardiovascular: Irregular Rhythm, Normal S1, Normal S2 Abdomen: Bowel Sounds Present, Soft Extremities: Severe RLE Edema, Severe LLE Edema Neurological: No Focal Motor or Sensory Deficit Psych/Mental Status: Appropriate 09/23/20 04:44: Hemoglobin A1c 6.4 H 09/24/20 05:12: WBC 12.2 H, RBC 4.74, Hgb 12.6 L, Hct 42.6, MCV 89.9, MCH 26.6 L , MCHC 29.6 L, Plt Count 226, MPV 10.2, Immature Gran % (Auto) 0.400, Neut % (Auto) 90.5 H, Lymph % (Auto) 4.6 L, [place] % (Auto) 4.4, Eos % (Auto) 0.0, Baso % (Auto) 0.1, Absolute Neuts (auto) 11.1 H, Nucleated RBC % 0 09/24/20 05:12: Sodium 132 L, Potassium 4.9, Chloride 99, Carbon Dioxide 30.0, Anion Gap 3 L, BUN 24 H, Creatinine 0.85, Est GFR (MDRD) Af Amer 123, Est GFR (MDRD) Non-Af 102, BUN/Creatinine Ratio 28.1 H, Glucose 156 H, Calcium 8.6 Rhythm: Atrial fibrillation Medical Necessity - Tobacco Use Smoking Status: Former smoker Assessment/Plan 1. Atrial fibrillation The patient does have atrial fibrillation. He has been treated with rate control therapy and anticoagulant therapy. It appears his rate has improved. He is going to go through other evaluation with an echocardiogram to evaluate his cardiac anatomy and physiology. 2. Hypertension The patient will need continued medical therapy as deemed appropriate. 3. Diabetes mellitus The patient is being evaluated by internal medicine. 4. Acute bronchitis The patient is undergoing evaluation care per internal medicine for his bronchitis. 5. Obstructive sleep apnea The patient's does need evaluation and care for obstructive sleep apnea as this may be a contributing factor to his underlying atrial dysrhythmia, etc. Comment: The patient's case was previously discussed with Dr. Joyce. This note was generated using a voice recognition system and there may be incorrect words, spelling or punctuation that were not noted when reviewing the office note prior to saving.
--- NOTE | 2020-09-24 09:40 | CASEMGMT ---
SYDNEY SANABRIA Assessment: Face to Face with pt for initial transition planning/care coordination assessment. SYDNEY SANABRIA introduced self and role at [facility], pt voices understanding and consents to assessment. Pt is A/O x4 and answers all questions appropriately at this time. Pt sitting up in chair in no distress with O2 on. Care providers, pharmacy, and demographics verified/updated. Admitting Dx: Afib PCP: [facility] Specialists: Pt denies having any specialists. Preferred Pharmacy: [facility] Insurance: [place] Prescription Benefit: yes LW/HPOA: Pt denies having a LW/DPOA and denies need for any info regarding this. LNOK: Amita Jeong, ex- Living Arrangements: Pt lives with stepdad in a single story house with no steps to enter. Pt reports being I in ADL's. Denies concerns at home. Transportation: Pt drives self and denies concerns with transportation. DME/HHC/SNF: Pt denies having any DME in the home, denies previous HHC or SNF stays. Pt states no concerns with going home at time of dc. 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 Pt states no further concerns/needs. CM to follow. Advised pt to ask CM if any further question/concerns/needs arise, voices understanding. Pt Goal: Home Plan: Home
[2020-09-24] MEDS: guaiFENesin 10 ML UDC (200MG/10ML) 20 ML PO (11:46)
[2020-09-24 12:20] LABS: Bedside Glucose 188 mg/dL (70-110)
--- NOTE | 2020-09-24 13:26 | PCM.PN.HOSP ---
Patient Problems: Active and Suspected Problems New onset atrial fibrillation (Acute) Acute bronchitis with bronchospasm (Acute) Reason for Visit: Follow-up with new onset A. fib with RVR Subjective: Patient was seen and examined. Denied any new complaints. Denied any chest pain or dizziness. Objective: Physical exam: General: Alert, Oriented x3, Cooperative, No apparent distress, well developed HEENT: Atraumatic Oral: Moist Mucosa Neck: Supple Lungs: Clear to auscultation Cardiovascular: HS I+II, regular, no murmurs Abdomen: Bowel Sounds Present, Soft, Non Tender Extremities: Bilateral leg edema, +2, chronic venous stasis skin changes Skin: No rashes, No breakdown Vitals/I&O's: Vital Signs Temp Pulse Resp BP Pulse Ox 98.0 F 102 H 18 120/74 96 09/24/20 08:32 09/24/20 11:26 09/24/20 08:32 09/24/20 11:26 09/24/20 08:32 Oxygen Flow Rate (L/min) 3 Oxygen Delivery Method Nasal Cannula Weight: 219.992 kg Body Mass Index (BMI) 69.5 Intake and Output for Last 24 Hours 09/22/20 09/23/20 09/24/20 23:59 23:59 23:59 Intake Total 820.83 / 1195.83 1520.00 / 1520.00 Output Total 0 / 0 Balance 820.83 / 1195.83 1520.00 / 1520.00 Microbiology Past 72 Hours 09/22/20 09:35 Nasal Secretion SARS-CoV-2 Antigen (Rapid) - Final Laboratory Results 09/23/20 16:23: POC Glucose 189 H 09/23/20 21:27: POC Glucose 202 H 09/24/20 05:12: WBC 12.2 H, RBC 4.74, Hgb 12.6 L, Hct 42.6, MCV 89.9, MCH 26.6 L, MCHC 29.6 L, RDW Std Deviation 49.5 H, RDW Coeff of Dominga 15.1 H, Plt Count 226, MPV 10.2, Immature Gran % (Auto) 0.400, Neut % (Auto) 90.5 H, Lymph % (Auto) 4.6 L, [place] % (Auto) 4.4, Eos % (Auto) 0.0, Baso % (Auto) 0.1, Absolute Neuts (auto) 11.1 H, Absolute Lymphs (auto) 0.56 L, Nucleated RBC % 0 09/24/20 05:12: Sodium 132 L, Potassium 4.9, Chloride 99, Carbon Dioxide 30.0, Anion Gap 3 L, BUN 24 H, Creatinine 0.85, Estim Creat Clear Calc 110.93, Est GFR (MDRD) Af Amer 123, Est GFR (MDRD) Non-Af 102, BUN/Creatinine Ratio 28.1 H, Glucose 156 H, Calcium 8.6 09/24/20 06:22: POC Glucose 167 H 09/24/20 11:29: POC Glucose 188 H Current Medications Acetaminophen (Acetaminophen 325 Mg Tablet) 650 mg PO Q6H PRN PRN PRN Reason: Pain Score 1-10/Temp > 100.7 F Last Admin: 09/24/20 06:34 Dose: 650 mg Documented by: Al Hydroxide/Mg Hydroxide (Mag Hydrox/Al Hydrox/Simeth 30 Ml Udc) 30 ml PO Q6H PRN PRN PRN Reason: Gastric Burning Albuterol Sulfate (Albuterol 2.5 Mg/3 Ml Vial.Neb.) 2.5 mg INHALATION Q2H PRN PRN PRN Reason: SOB/Wheezing Last Admin: 09/23/20 06:59 Dose: 2.5 mg Documented by: Apixaban (Apixaban 5 Mg Tablet) 5 mg PO BID [facility] Last Admin: 09/24/20 08:41 Dose: 5 mg Documented by: Budesonide (Budesonide Respules 0.5 Mg/2 Ml Ampul.Neb.) 0.5 mg INHALATION BID.RT [facility] Last Admin: 09/24/20 06:49 Dose: 0.5 mg Documented by: Dextrose (Dextrose 50%-Water 25 Gm/50 Ml Disp.Syrin) 0 gm IV X1 PRN; Protocol PRN Reason: Hypoglycemia Diltiazem HCl (Diltiazem 30 Mg Tablet) 90 mg PO Q6 [facility] Last Admin: 09/24/20 12:22 Dose: 90 mg Documented by: Glucagon (Glucagon 1 Mg/Ml Syringe) 1 mg IM .X1 PRN PRN Reason: Hypoglycemia Guaifenesin (Guaifenesin 10 Ml Udc (200mg/10ml)) 20 ml PO Q4H PRN PRN PRN Reason: COUGH Last Admin: 09/24/20 11:46 Dose: 20 ml Documented by: Hydralazine HCl (Hydralazine 20 Mg/Ml Vial) 10 mg IV Q4H PRN PRN PRN Reason: Hypertensive Emergency Diltiazem HCl 125 mg/ Dextrose 125 mls @ 5 mls/hr IV .Q25H [facility]; Protocol Last Titration: 09/23/20 17:00 Dose: 0 mg/hr, 0 mls/hr Documented by: Sodium Chloride () 250 mls @ 15 mls/hr IV .[id number] PRN PRN Reason: Saline Flush Sodium Chloride () 250 mls @ 15 mls/hr IV .[id number] PRN PRN Reason: Additional IVPB Infusion Insulin Glargine (Insulin Glargine 100 Units/Ml Pen) 10 units SC QHS [facility] Last Admin: 09/23/20 22:00 Dose: 10 unit Documented by: Insulin Human Lispro (Insulin Lispro 100 Unit/Ml [facility].Pen) [facility]; Protocol Last Admin: 09/24/20 11:43 Dose: 2 units Documented by: Melatonin (Melatonin 3 Mg Tablet) 3 mg PO QHS PRN PRN PRN Reason: INSOMNIA Methylprednisolone (Methylprednisolone 40 Mg/Ml Vial) 40 mg IV Q8 [facility] Last Admin: 09/24/20 05:10 Dose: 40 mg Documented by: Nitroglycerin (Nitroglycerin (Inpatient Use) 0.4 Mg Tab.Subl) 0.4 mg SL Q5M PRN PRN Reason: CARDIAC/CHEST PAIN Nystatin (Nystatin Powder 15gm Bottle) 1 applic TOPICAL TID [facility]; Protocol Last Admin: 09/24/20 05:09 Dose: 1 applic Documented by: Ondansetron HCl (Ondansetron 4 Mg/2 Ml Vial) 4 mg IV Q8H PRN PRN PRN Reason: NAUSEA/VOMITING Oxycodone HCl (Oxycodone 5 Mg Tablet) 5 mg PO Q4H PRN PRN PRN Reason: Pain Score 4-5 Oxycodone HCl (Oxycodone 5 Mg Tablet) 10 mg PO Q4H PRN PRN PRN Reason: Pain Score 6-10 Senna/Docusate Sodium (Senna/Docusate Sodium 1 Tablet) 2 tablet PO BID PRN PRN PRN Reason: Constipation Sodium Chloride (0.9% Saline Lock 10 Ml Syringe) 10 - 40 ml IV UD PRN PRN Reason: SALINE FLUSH Last Admin: 09/23/20 14:05 Dose: 10 ml Documented by: STROKE Vital Signs/Narrative: Vital Signs Pulse BP 09/24/20 11:26 102 H 120/74 09/24/20 10:59 110 H Medical Necessity - Tobacco Use Smoking Status: Former smoker Assessment/Plan All Active Problems New onset atrial fibrillation (Acute) Acute bronchitis with bronchospasm (Acute) 1. New onset A. fib with RVR, remains in RVR, on Cardizem 90 mg p.o. every 6h as well as Eliquis 2D-Echo shows EF of 55%, diastolic dysfunction could not be assessed. Will switch to Cardizem 180 mg p.o. every 12, continue with Eliquis 2. Acute hypoxic respiratory insufficiency secondary to acute bronchitis Patient remains on 3 L of oxygen. CTA of the chest as well as chest x-ray was unremarkable Will check BNPep, continue on breathing treatments, switch from IV Solu-Medrol to prednisone 3. Type 2 DM, HbA1c 6.4, on Metformin at home, Metformin held Continue on Lantus as well as ISS with blood glucose checks 4. Hypertension, controlled, continue on Cardizem, Lisinopril on hold 5. Morbid obesity, BMI 69.9, lifestyle modification recommended 6. DVT PPx- Eliquis Inpatient E&M: 11588 Subs Hosp L2
[2020-09-24 14:50] LABS: BNP,B-Type NATRIURETIC PEPTIDE 104.1 pg/mL (0-100)
[2020-09-24] MEDS: Furosemide 20 MG/2 ML VIAL IV (14:52)
[2020-09-24] MEDS: dilTIAZem CD 180 MG Capsule PO ×2 (14:52→20:34)
[2020-09-24 17:21] LABS: Bedside Glucose 181 mg/dL (70-110)
[2020-09-24 21:11] LABS: Bedside Glucose 196 mg/dL (70-110)
[2020-09-24] MEDS: Albuterol 2.5 MG/3 ML VIAL.NEB. INHALATION (21:34)
--- NOTE | 2020-09-24 21:56 | NURSING ---
Tt requested evening medications prior to 9AM.
[2020-09-25] VITALS (7 sets, daily range): BP systolic 137–139; BP diastolic 73–80; PULSE 83–106; RESP 18; TEMP 36.4–36.7; O2SAT 87–97
[2020-09-25] MEDS: Acetaminophen 325 MG Tablet 650 MG PO (06:15)
[2020-09-25 07:10] LABS: Bedside Glucose 137 mg/dL (70-110)
[2020-09-25] MEDS: APIXABAN 5 MG TABLET PO (09:29)
[2020-09-25] MEDS: dilTIAZem CD 180 MG Capsule PO (09:29)
[2020-09-25] MEDS: predniSONE 20 MG Tablet 40 MG PO (09:29)
[2020-09-25] MEDS: guaiFENesin 10 ML UDC (200MG/10ML) 20 ML PO (10:12)
--- NOTE | 2020-09-25 10:25 | CASEMGMT ---
Addendum entered by Monica Lloyd 09/25/20 11:19: TC to Gay at [facility] [place]. States O2 referral received and should arrive within the hour. Original Note: RN ELLY notified that pt will need O2 at dc. Patient was provided a list of DME providers including quality and resource use data and consistent with the patient?s preferred geographic region, medical needs, and insurance network. The patient?s preferred provider [facility] [place]. Referral faxed to [facility] [place] at this time.
[2020-09-25] MEDS: Insulin Lispro 100 UNIT/ML INSULN.PEN SC (11:31)
[2020-09-25 11:36] LABS: ALB/GLOB Ratio 0.8 RATIO (0.9-2.4); AST(SGOT) 53 U/L (15-37); Alanine Aminotransfer ALT/SGPT 111 U/L (16-61); Albumin, Serum 3.4 g/dL (3.2-5.0); Alkaline Phosphatase 88 U/L (45-117); Anion Gap 3 (5-15); BUN 33 mg/dL (7-18); BUN/Creat Ratio 37.3 RATIO (10-20); Chloride 100 mmol/L (98-107); Creatinine, Serum 0.88 mg/dL (0.70-1.30); EST Glomerular Filtration Rate 98 mL/min (>60); Est Glom Filt Rate - Afr Amer 118 mL/min (>60); Estimated Creatinine Clearance 107.15 ml/min; Globulin 4.3 g/dL (2.2-4.2); Glucose 174 mg/dL (74-106); Potassium 4.3 mmol/L (3.5-5.1); Protein, Total 7.7 g/dL (6.4-8.2); Sodium Level 136 mmol/L (136-145)
[2020-09-25 11:50] LABS: Bedside Glucose 166 mg/dL (70-110)
--- NOTE | 2020-09-25 13:45 | PCM.PN.CARD ---
Subjective Subjective: The patient was evaluated earlier this day. He was awake and alert. He had already been up in the chair and eating breakfast. He had no new acute complaints. He states he feels better compared to admission. Objective Data Objective Data Vital Signs: Vital Signs Temp Pulse Resp BP Pulse Ox 97.6 F L 91 18 137/73 H 87 09/25/20 09:23 09/25/20 10:59 09/25/20 09:23 09/25/20 09:23 09/25/20 10:00 Oxygen Flow Rate (L/min) [ 2 AMBULATING with Oxygen #1] Oxygen Flow Rate (L/min) [At 2 REST with Oxygen] Oxygen Flow Rate (L/min) 3 Oxygen Delivery Method Room Air Weight: 484 lb 15.989 oz Body Mass Index (BMI) 69.5 Intake & Output: Intake and Output for Last 24 Hours 09/23/20 09/24/20 09/25/20 23:59 23:59 23:59 Intake Total 1520.00 / 1520.00 120 / 120 Output Total 0 / 0 Balance 1520.00 / 1520.00 120 / 120 Lab / Micro Data Result Diagrams: 09/24/20 05:12 09/25/20 11:13 Labs: Laboratory Results - last 24 hr 09/24/20 09/24/20 09/24/20 05:12 16:50 20:33 Sodium Potassium Chloride Carbon Dioxide Anion Gap BUN Creatinine Estim Creat Clear Calc Est GFR (MDRD) Af Amer Est GFR (MDRD) Non-Af BUN/Creatinine Ratio Glucose Calcium Total Bilirubin AST ALT Alkaline Phosphatase B-Natriuretic Peptide 104.1 H Total Protein Albumin Globulin Albumin/Globulin Ratio POC Glucose 181 H 196 H 09/25/20 09/25/20 09/25/20 06:30 11:13 11:30 Sodium 136 Potassium 4.3 Chloride 100 Carbon Dioxide 33.0 H Anion Gap 3 L BUN 33 H Creatinine 0.88 Estim Creat Clear Calc 107.15 Est GFR (MDRD) Af Amer 118 Est GFR (MDRD) Non-Af 98 BUN/Creatinine Ratio 37.3 H Glucose 174 H Calcium 9.0 Total Bilirubin 0.50 AST 53 H ALT 111 H Alkaline Phosphatase 88 B-Natriuretic Peptide Total Protein 7.7 Albumin 3.4 Globulin 4.3 H Albumin/Globulin Ratio 0.8 L POC Glucose 137 H 166 H Micro: Microbiology 09/22/20 09:35 Nasal Secretion SARS-CoV-2 Antigen (Rapid) - Final Rhythm Strip Rhythm Strip: A-fib Rate: 155 Ectopy: PVC(s) (Versus abbarant beats) Physical Exam Const alert and oriented x3 Orientation / Consciousness: awake HEENT normocephalic and head/scalp atraumatic Eyes PERRL and EOMs intact bilaterally Neck full ROM and supple Chest inspection of chest normal Resp normal respiratory effort and clear to auscultation bilaterally Cardio regular rate and regular rhythm Rate: regular rate Rhythm: regular rhythm Heart Sounds: S1 normal and S2 normal GI normal to inspection, nondistended, normoactive bowel sounds Extremity General Extremity: edema bilateral lower extremity Details: moderate 09/24/20 05:12: B-Natriuretic Peptide 104.1 H 09/25/20 11:13: Sodium 136, Potassium 4.3, Chloride 100, Carbon Dioxide 33.0 H, Anion Gap 3 L, BUN 33 H, Creatinine 0.88, Est GFR (MDRD) Af Amer 118, Est GFR (MDRD) Non-Af 98, BUN/Creatinine Ratio 37.3 H, Glucose 174 H, Calcium 9.0, Total Bilirubin 0.50 Rhythm: Atrial fibrillation ECHO: Interpretation Summary The study was technically difficult. Contrast injection was performed. Left ventricular systolic function is normal. The estimated ejection fraction is 55 %. Moderate concentric left ventricular hypertrophy. The left atrium is mildly enlarged. Trivial mitral valve insufficiency. Trivial tricuspid valve insufficiency. Borderline enlarge aortic root. Right ventricular systolic pressure estimated to be 37 mmHg. Unable to assess diastolic dysfunction. Assessment & Plan Assessment/Plan (1) New onset atrial fibrillation: Status: Acute Code(s): I48.91 - Unspecified atrial fibrillation Plan: The patient remains in atrial fibrillation. The present time the plan is for continued rate control therapy and anticoagulant therapy. After he recuperates from his acute respiratory event then if he has not converted back to sinus rhythm consideration can be given to a future synchronized biphasic DC cardioversion attempt after he has been adequately anticoagulated. (2) Hypertension: Status: Chronic Code(s): I10 - Essential (primary) hypertension Qualifiers: Hypertension type: essential hypertension Qualified Code(s): I10 - Essential (primary) hypertension Plan: The patient's blood pressure needs to be followed with his medicines adjusted accordingly. (3) Obstructive sleep apnea: Status: Chronic Code(s): G47.33 - Obstructive sleep apnea (adult) (pediatric) Plan: The patient should be considered for BEATRIZ evaluation as this may be a contributing factor to his atrial dysrhythmia. (4) Acute bronchitis with bronchospasm: Status: Acute Code(s): J20.9 - Acute bronchitis, unspecified Plan: The patient continues evaluation care per internal medicine. 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 (6) Morbid obesity with BMI of 70 and over, adult: Status: Chronic Code(s): E66.01 - Morbid (severe) obesity due to excess calories; Z68.45 - Body mass index [BMI] 70 or greater, adult Plan: Unfortunately the patient is morbidly obese. This may contribute to his multiple medical issues.
--- NOTE | 2020-09-25 14:50 | CASEMGMT ---
Addendum entered by Monica Lloyd 09/25/20 15:27: Spoke with pharmacy. Pt does not have copay for eliquis. Original Note: SYDNEY CM in to pt room to notify of Eliquis order. Pt states he would like his meds delivered to his room. TC to pharmacy, spoke with Rossy. She states they have not received the script for eliquis yet but they have the savings card and will apply it. She will call pt for payment for room delivery.
--- NOTE | 2020-09-25 15:10 | DS.PCM_ITS ---
Providers Date of Admission: 09/22/20 Primary Care Physician: Dr. Dieudonne Dinero MD Consultations 09/22/20 11:02 Physician Consult Routine Consulting Provider: Conrad Joyce Reason for Consult: New onset A. fib with RVR Notified: Yes Date Notified:: 09/22/20 Time Notified: 10:55 Method of Notification:: Verbal 09/22/20 12:02 Physician Consult Routine Consulting Provider: Conrad Joyce Consulted Physician Type:: CARD -[facility] Reason for Consult: afib Method of Consult:: In-Person MD Notified: Yes Date Notified:: 09/22/20 Time Notified: 11:19 Method of Notification:: by Dr Garcia from the ED Reason For Visit: AFIB Diagnosis Discharge Diagnosis (1) New onset atrial fibrillation: Status: Acute Code(s): I48.91 - Unspecified atrial fibrillation (2) Hypertension: Status: Chronic Code(s): I10 - Essential (primary) hypertension Qualifiers: Hypertension type: essential hypertension Qualified Code(s): I10 - Essential (primary) hypertension (3) Obstructive sleep apnea: Status: Chronic Code(s): G47.33 - Obstructive sleep apnea (adult) (pediatric) (4) Acute bronchitis with bronchospasm: Status: Acute Code(s): J20.9 - Acute bronchitis, unspecified (5) DM2 (diabetes mellitus, type 2): Status: Chronic Code(s): E11.9 - Type 2 diabetes mellitus without complications 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 (6) Morbid obesity with BMI of 70 and over, adult: Status: Chronic Code(s): E66.01 - Morbid (severe) obesity due to excess calories; Z68.45 - Body mass index [BMI] 70 or greater, adult (7) Hypoxia: Status: Acute Code(s): R09.02 - Hypoxemia Medications at Discharge Home Medications ergocalciferol (vitamin D2) 1,250 mcg PO QWEEK 09/22/20 lisinopril 10 mg PO DAILY 09/22/20 metformin 500 mg PO DAILY 09/22/20 albuterol sulfate 1 inh INHALATION Q8H PRN #8.5 g 09/25/20 apixaban [Eliquis] 5 mg PO BID 30 Days #60 tab 09/25/20 diltiazem HCl 180 mg PO Q12 30 Days #60 cap 09/25/20 furosemide [Lasix] 40 mg PO DAILY #30 tab 09/25/20 insulin glargine [Lantus Solostar U-100 Insulin] 10 units SUBCUT QHS 30 Days #3 ml 09/25/20 pen needle, diabetic [NovoFine Plus] #100 ea 09/25/20 prednisone 40 mg PO DAILY@0800 #10 tab 09/25/20 Hospital Course Operations None Procedures 2-D Echocardiogram Summary of Care Provided Minutes Spent on Discharge: 40 Hospital Course: 45-year-old with past medical history of super morbid obesity, newly diagnosed type II DM, hypertension who was admitted from the ED with rapid heart rate. Patient was sent from his PCPs office with rapid heart rate. He was recently been evaluated for acute bronchitis and new onset diabetes. Vitals in the office, he was tachycardic and short of breath. In the ED patient was found to have A. fib with RVR and received Cardizem bolus. He was admitted to the telemetry floor. His COVID-19 rapid antigen test was negative. He was maintained on Solu-Medrol. His blood sugar is were elevated as a result of the steroids. He was started on long-acting insulin and his Metformin was held. His HbA1c was 6.4. Patient was seen by cardiology during this hospital stay. His 2D echo showed EF of 55%, unable to assess diastolic dysfunction. Patient was transitioned to oral Cardizem with increasing his Cardizem to 180 mg p.o. twice daily. He was also transitioned to Eliquis. He received prescriptions for insulin and needles. He was asked to monitor his blood sugars closely and follow-up with his primary care doctor in 1 week. Patient was assessed for oxygen and found to qualify for oxygen at discharge. He was discharged on 3 L of oxygen. He will need work-up and follow-up with pulmonology and also for assessment for sleep apnea. He would see Dr. Shah in the outpatient within a week. Physical Exam Narrative General: Alert, Oriented x3, Cooperative, No apparent distress, well developed, morbidly obese, on 3 L of oxygen HEENT: Atraumatic Oral: Moist Mucosa Neck: Supple Lungs: Diminished Cardiovascular: HS I+II, regular, no murmurs Abdomen: Bowel Sounds Present, Soft, Non Tender Extremities: Bilateral leg edema, +2, chronic venous stasis skin changes Skin: No rashes, No breakdown ABG / Lab / Microbiology Data Result Diagrams: 09/24/20 05:12 09/25/20 11:13 Laboratory: Laboratory Results - last 24 hr 09/24/20 09/24/20 09/25/20 16:50 20:33 06:30 Sodium Potassium Chloride Carbon Dioxide Anion Gap BUN Creatinine Estim Creat Clear Calc Est GFR (MDRD) Af Amer Est GFR (MDRD) Non-Af BUN/Creatinine Ratio Glucose Calcium Total Bilirubin AST ALT Alkaline Phosphatase Total Protein Albumin Globulin Albumin/Globulin Ratio POC Glucose 181 H 196 H 137 H 09/25/20 09/25/20 11:13 11:30 Sodium 136 Potassium 4.3 Chloride 100 Carbon Dioxide 33.0 H Anion Gap 3 L BUN 33 H Creatinine 0.88 Estim Creat Clear Calc 107.15 Est GFR (MDRD) Af Amer 118 Est GFR (MDRD) Non-Af 98 BUN/Creatinine Ratio 37.3 H Glucose 174 H Calcium 9.0 Total Bilirubin 0.50 AST 53 H ALT 111 H Alkaline Phosphatase 88 Total Protein 7.7 Albumin 3.4 Globulin 4.3 H Albumin/Globulin Ratio 0.8 L POC Glucose 166 H Microbiology: Microbiology 09/22/20 09:35 Nasal Secretion SARS-CoV-2 Antigen (Rapid) - Final D/C Instructions Discharge Diet: Low fat / Low cholesterol and 2000 mg Sodium Diet Discharge Activity: Return to Normal Activity May resume sexual activity in: 1-2 weeks Weight Bearing Status: Weight bearing as tolerated Please Follow Up With: Grover Shah MD When: as scheduled Meaningful Use Info Meaningful Use Diagnoses (Choose all that apply): None applicable Discharge Plan Admission Admit Date/Time: 09/22/20 11:01 Primary Reason for Your Visit: Newly diagnosed A. fib with RVR Attending Provider: Dianne Dawson Primary Care Provider: Dieudonne Dinero Consulting Providers: Conrad Joyce Instructions Patient Instructions: Controlling High Blood Pressure, Atrial Fibrillation Additional Instructions / Restrictions: Take note of changes to your medications. Continue to monitor your blood sugars closely while on prednisone. Follow-up with Dr. Belcher within 2 weeks. Continue to monitor your blood sugars closely. Follow-up with your primary care doctor to discontinue your insulin. Discharge Orders/Prescriptions Prescriptions: New diltiazem HCl 180 mg Capsule,Extended Release 24hr 180 mg PO Q12 30 Days Qty: 60 RF: 0 Lantus Solostar U-100 Insulin 100 unit/mL (3 mL) Insulin Pen 10 units subcut QHS 30 Days Qty: 3 RF: 0 Eliquis 5 mg Tablet 5 mg PO BID 30 Days Qty: 60 RF: 0 furosemide [Lasix] 40 mg tablet 40 mg PO DAILY Qty: 30 RF: 0 albuterol sulfate 90 mcg/actuation HFA aerosol inhaler 1 inh inhalation Q8H PRN (Reason: shortness of breath or wheezing) Qty: 8.5 RF: 0 prednisone 20 mg Tablet 40 mg PO DAILY@0800 Qty: 10 RF: 0 (DME) NovoFine Plus 32 gauge x 1/6 needle 1 ea miscellaneous TID Qty: 100 RF: 0 Continued lisinopril 10 MG tablet 10 mg PO DAILY RF: 0 ergocalciferol (vitamin D2) 50,000 UNIT capsule 1,250 mcg PO QWEEK RF: 0 metformin 500 MG tablet,ER annia.retention 24 hr 500 mg PO DAILY RF: 0 Referrals: Grover Shah MD [STAFF PHYSICIAN] - (within 2 weeks for evaluation of sleep apnea ) Mal Belcher MD [STAFF PHYSICIAN] - Within 1 Month (follow-up in 2-4 weeks ) Dieudonne Dinero MD [Primary Care Provider] - In 1 Week (You will need repeat blood work to check on your kidneys whilst on Lasix ) Disposition Patient Disposition: Home, self care Inpatient E&M: [id number] Disch Hosp
--- NOTE | 2020-09-26 14:14 | CASEMGMT ---
Call from Arlene at [facility] and she states pt refused for them to come set up home oxygen last night and today. 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 Fani Lloyd RN, CM updated, voices understanding. Irish GRIMES CM
== END 2020-09-25 16:28 | disposition home or self-care (01) | DRG 309 ==
LOC: ED 10:59 → PCU 11:23
PROVIDERS: Admitting Provider Internal Medicine; Emergency Provider Emergency Medicine; PCP Family Medicine; Visit Provider Internal Medicine
DX: I48.91 Unspecified atrial fibrillation (principal); Z68.45 Body mass index [BMI] 70 or greater, adult; R09.02 Hypoxemia; J20.9 Acute bronchitis, unspecified; E11.65 Type 2 diabetes mellitus with hyperglycemia; T38.0X5A Adverse effect of glucocorticoids and synthetic analogues, initial encounter; Y92.239 Unspecified place in hospital as the place of occurrence of the external cause; I10 Essential (primary) hypertension; Z20.822 Contact with and (suspected) exposure to COVID-19; E66.01 Morbid (severe) obesity due to excess calories; G47.33 Obstructive sleep apnea (adult) (pediatric); Z91.19 Patient's noncompliance with other medical treatment and regimen; Z79.01 Long term (current) use of anticoagulants; Z79.84 Long term (current) use of oral hypoglycemic drugs; Z79.899 Other long term (current) drug therapy; Z87.891 Personal history of nicotine dependence
CPT/HCPCS: 36415; 71045; 71275; 80048; 80053; 82962; 83036; 83605; 83735; 83880; 84100; 84443; 84484; 85025; 85379; 87426; 93005; 93306; 94640; 97802; 99251; 99285; Q9957; Q9967; A4216; C8929; G0463; J1940

== ENCOUNTER → 2020-10-17 20:00 | Outpatient (CLI) | payer BC, SELFPAY ==
[2020-10-04 14:20] VITALS: BMI 65.9
== END ==
PROVIDERS: PCP Family Medicine; Referring Provider Internal Medicine Critical Care Medicine; Visit Provider Internal Medicine Critical Care Medicine
DX: G47.33 Obstructive sleep apnea (adult) (pediatric) (principal)
CPT/HCPCS: 95811

== ENCOUNTER → 2020-10-24 09:41 | Outpatient (CLI) | payer BC, SELFPAY ==
[2020-10-04 14:20] VITALS: BMI 65.9
--- NOTE | 2020-10-24 13:57 | PFTCOMP ---
COMPLETE PULMONARY FUNCTION TEST INTERPRETATION Brief HPI: Patient is a 45 year old male, currently under the care of myself, who presents to [facility] for complete pulmonary function tests secondary to diagnosis of hypoxia. Respiratory therapist reports good effort and reproducible results. Interpretation: Forced expiration spirometry shows no large airways obstructive ventilatory defect with an FEV1 of 61% predicted. There is no significant bronchodilator response by strict ATS criteria. Spirograms are of good quality and plateau normally. The respiratory flow volume loop shows a normal pattern. Lung volumes by body plethysmography were unable to be obtained Diffusion capacity by carbon monoxide is decreased at 75% predicted. The airway resistance was not obtained. No previous pulmonary function tests were available for review. Impression: Findings suggestive of restrictive lung disease with symmetric reduction diffusing capacity. Lung volumes would be helpful.
== END ==
PROVIDERS: PCP Family Medicine; Referring Provider Internal Medicine Critical Care Medicine; Visit Provider Internal Medicine Critical Care Medicine
DX: R09.02 Hypoxemia (principal)
CPT/HCPCS: 94060; 94729

== ENCOUNTER → 2020-10-26 13:47 | Outpatient (CLI) | payer BC, SELFPAY ==
[2020-10-04 14:20] VITALS: BMI 65.9
[2020-10-26 09:50] VITALS: BMI 67.7
== END ==
PROVIDERS: PCP Family Medicine; Visit Provider Nurse Practitioner Acute Care
DX: Z46.89 Encounter for fitting and adjustment of other specified devices (principal)

== ENCOUNTER → 2020-10-30 13:03 | Outpatient (CLI) | payer BC, SELFPAY ==
[2020-10-04 14:20] VITALS: BMI 65.9
[2020-10-26 09:50] VITALS: BMI 67.7
[2020-10-30 13:24] VITALS: PULSE 100; PULSE 94; PULSE 96; PULSE 98; PULSE 99; O2SAT 91; O2SAT 92; O2SAT 93; O2SAT 95; O2SAT 96
--- NOTE | 2020-10-30 13:26 | CPS ---
ENTIRE TEST DONE WITH PT ON ROOM AIR. PT TOOK 1 SHORT REST BREAK FOR BILATERAL KNEE DISCOMFORT AND SOME INCREASE IN WOB, WALK RESUMED WITHOUT FURTHER ISSUE
--- NOTE | 2020-10-31 08:46 | WT_ITS ---
PSN 6 Minute Walk Test 6 Minute Walk Test 6 Minute Walk Test: 6 Minute Walk Test PSN:6-Minute Walk Test Start: 10/30/20 13:23 Freq: Status: Active Protocol: [id number] Document 10/30/20 13:24 [facility] (Rec: 10/30/20 13:27 [facility] [id number]) 6 Minute Walk Test Pre-test Oxygen Delivery Method Room Air Pulse Ox (%) 95 Pulse Rate (60-100 beats/min) 94 Dyspnea Alma Scale (0-10) 1 1st minute Oxygen Delivery Method Room Air Pulse Ox (%) 93 Pulse Rate (60-100 beats/min) 100 Dyspnea Alma Scale (0-10) 1 Number of Rests Taken 0 2nd minute Oxygen Delivery Method Room Air Pulse Ox (%) 92 Pulse Rate (60-100 beats/min) 98 Dyspnea Alma Scale (0-10) 2 Number of Rests Taken 0 3rd minute Oxygen Delivery Method Room Air Pulse Ox (%) 92 Pulse Rate (60-100 beats/min) 99 Dyspnea Alma Scale (0-10) 3 Number of Rests Taken 0 Reported Symptoms Increased Work of Breathing 4th minute Oxygen Delivery Method Room Air Pulse Ox (%) 91 Pulse Rate (60-100 beats/min) 100 Dyspnea Alma Scale (0-10) 3 Number of Rests Taken 0 Reported Symptoms Increased Work of Breathing 5th minute Oxygen Delivery Method Room Air Pulse Ox (%) 92 Pulse Rate (60-100 beats/min) 98 Dyspnea Alma Scale (0-10) 3 Number of Rests Taken 1 Reported Symptoms Increased Work of Breathing 6th minute Oxygen Delivery Method Room Air Pulse Ox (%) 93 Pulse Rate (60-100 beats/min) 100 Dyspnea Alma Scale (0-10) 3 Number of Rests Taken 0 Reported Symptoms Increased Work of Breathing Post-test Oxygen Delivery Method Room Air Pulse Ox (%) 96 Pulse Rate (60-100 beats/min) 96 Dyspnea Alma Scale (0-10) 1 Full Laps Walked 13 Partial Lap, Number of Tiles Walked 29 Total Distance Walked (ft) 796 10/30/20 13:26 Cardiopulmonary Services by Thea Monge ENTIRE TEST DONE WITH PT ON ROOM AIR. PT TOOK 1 SHORT REST BREAK FOR BILATERAL KNEE DISCOMFORT AND SOME INCREASE IN WOB, WALK RESUMED WITHOUT FURTHER ISSUE Initialized on 10/30/20 13:26 - END OF NOTE Interpretation Interpretation: The patient ambulated 796 feet over the course of 6 minutes beginning on room air without assistive devices. Pretesting oxygen saturation was noted to be 95% on room air. With ambulation, the marjorie oxygen saturation was 91%. This represents a significant exertional oxygen desaturation. Recommendations Recommendations: There is no indication for the use of supplemental oxygen at this time. However, close interval follow-up is recommended, given the degree of oxygen desaturation noted during the study.
== END ==
PROVIDERS: PCP Family Medicine; Referring Provider Internal Medicine Critical Care Medicine; Visit Provider Internal Medicine Critical Care Medicine
DX: R09.02 Hypoxemia (principal)
CPT/HCPCS: 94618

== ENCOUNTER 2020-11-20 10:50 | Day surgery (SDC) | payer BC, SELFPAY ==
[2020-10-26 09:50] VITALS: BMI 67.7
[2020-11-19 09:24] VITALS: BMI 67.7
--- NOTE | 2020-11-19 17:30 | PCM.HP.BLA ---
History and Physical Date of Admission: 11/20/20 [facility] [id number], [place] [id number] OFFICE VISITDate of Service: 10/26/20 MR#:[id number]:[id number]: FAIZA TONEY #[id number]:[id number] Provider: CARLIE Roque RoofAge/Sex: 45/M [facility]Signed HPI HPI History of Present Illness Surgical H&P: Yes Details: This is a 45-year-old male who presents the office today for a cardiovascular outpatient follow-up. He was initially seen in hospital in August 2020 for new onset atrial fibrillation with RVR. He was started on Cardizem and Eliquis therapy. His echocardiogram on 09/22/2020 showed ejection fraction of 55% and mildly enlarged left atrium with an RVSP of 37 mmHg. He also has a past medical history of hypertension, obstructive sleep apnea, obesity, and diabetes mellitus type 2. He denies chest, arm, jaw, or neck discomfort. His exercise tolerance is stable. He denies symptoms of palpitations, lightheadedness, dizziness, near syncope, or syncopal episodes. He denies edema or claudication issues. He denies orthopnea, PND, fever, chills, blood in urine, blood in stool, or unexplainable fatigue. He does acknowledge muscle aches/myalgia mostly at the left leg described as cramping and joint pain. He also acknowledges shortness of breath with activity. Intake Vital Signs 10/26/20 09:50 Height 5 ft 10 in Weight: 472 lb BMI 67.7 BP 110/66 Blood Pressure Location Lt brachial Position Sitting Respiration 18 Pulse 68 Pulse Source Auscultation Intake Visit Reasons: A-fib Managing Director Atlas Required: No Accompanied by: None Is patient in pain?: No Allergies No Known Allergies Allergy (Verified 10/26/20 11:11) Medications ergocalciferol (vitamin D2) 1,250 mcg PO QWEEK 09/22/20 [History Confirmed 10/26/20] lisinopril 10 mg PO DAILY 09/22/20 [History Confirmed 10/26/20] metformin 500 mg PO DAILY 09/22/20 [History Confirmed 10/26/20] albuterol sulfate 1 inh INHALATION Q8H PRN #8.5 g 09/25/20 [Rx Confirmed 10/26/20] apixaban [Eliquis] 5 mg PO BID 30 Days #60 tab 09/25/20 [Rx Confirmed 10/26/20] diltiazem HCl 180 mg PO Q12 30 Days #60 cap 09/25/20 [Rx Confirmed 10/26/20] furosemide [Lasix] 40 mg PO DAILY #30 tab 09/25/20 [Rx Confirmed 10/26/20] insulin glargine [Lantus Solostar U-100 Insulin] 10 units SUBCUT QHS 30 Days #3 ml 09/25/20 [Rx Confirmed 10/26/20] pen needle, diabetic [NovoFine Plus] #100 ea 09/25/20 [Rx Confirmed 10/26/20] Ejection fraction %: 55 to 59 PFSH Medical History Essential hypertension Morbid obesity with BMI of 70 and over, adult New onset atrial fibrillation BEATRIZ treated with BiPAP Surgical History History of gastric restrictive surgery (~2010) Family History Aunt Breast cancer Grandfather Cancer Liver Grandmother Muscular dystrophy Social History Smoking Status: Former smoker how long ago did patient quit smokin years ago alcohol intake: current alcohol intake frequency: holidays/special occasions only substance use type: does not use caffeine: Yes Type: carbonated beverages, coffee and tea ROS Const Const: Negative for fatigue, weakness, headache(s), frequent falls, difficulty sleeping or excessive sweating Eyes Eyes: Negative for loss of peripheral vision, transient loss of vision, blurry vision, double vision or tunnel vision ENT ENT: Negative for headache(s), dizziness, Nosebleed/epistaxis or balance problems Cardio Chest Pain: No Palpitations: No Edema: None Muscle aches with walking: None Resp Respiratory: Positive for SOB with activity; Negative for SOB at rest, SOB orthopnea\SOB lying down, Cough or paroxysmal nocturnal dyspnea GI GI: Negative nausea, vomiting, heartburn or black,tarry stools : Negative for hematuria Musc Musc: Positive for muscle aches/ myalgia (cramping-mostly left leg) and joint pain; Negative for muscle weakness or balance problems Skin Skin: Negative non-healing lesions, rash or unusual bruising Neuro Neuro: Negative for dizziness, lightheadedness, near syncope, syncope, frequent falls, headache(s), weakness, blurry vision, double vision or lack of coordination Aidan Hematologic/Lymphatic: Negative for easy bleeding or easy bruising Endo Endo: Negative for fatigue, excessive sweating or increased thirst/drinking Psych Psych: Negative for anxiety or depression Allergy Allergy/Immunology: Negative for hives and Negative for rash Cardiology Exam Const Appearance: cooperative, healthy appearing, comfortable and no acute distress Nutritional Appearance: well nourished and obese Orientation: alert, awake and oriented x3 Head Head: normal to inspection Ears: hearing grossly normal bilaterally Nose: external nose normal Face and Sinus: face symmetric Mouth: oral mucosae normal Eyes General: appearance normal, both eyes and all related structures Eyelids: eyelids normal EOM: EOM intact bilaterally Neck Neck: normal visual inspection and no JVD Carotids: normal carotid upstroke Chest Chest inspection: normal inspection of the chest, symmetric chest movement and normal respiratory effort; Negative cough Auscultation: Bilateral: Diminished Lung Sounds Cardio Rate: regular rate Rhythm: irregular rhythm Heart sounds: S1 normal and S2 normal; Negative rub, gallop or murmur GI GI: normal to inspection and obese Neuro General: patient alert, patient awake, patient oriented x3 and CN's II-XI intact bilaterally Skin Skin: no rashes or lesions noted Extremities Pulses: Normal: Right Posterior Tibial Pulse, Left Posterior Tibial Pulse, Right Radial Pulse and Left Radial Pulse Lower Extremity Edema: None: Bilateral Psych Psychological: normal affect Assessment and Plan Assessment and Plan (1) New onset atrial fibrillation: Status: Acute Orders: Orders: 12 Lead EKG performed by [facility] 10/26/20 Basic Metabolic Profile (BMP) Today Cardioversion Today Plan - Alexandru Jacobo NP, DIRECTOR OF AGRICULTURE-C: His EKG in office continues to show atrial fibrillation. His case was reviewed with Dr. Belcher. At this time, we will proceed with cardioversion. Due to onset nature of atrial fibrillation and multiple risk factors, is recommend to undergo stress test. However, based on body size and weight, he exceeds limits of nuclear stress test machine. Thus, we will proceed with cardioversion. Based on response and symptoms, further recommendation her options will be explored regarding coronary artery disease evaluation. His most recent echocardiogram from August 2020 showed an ejection fraction of 55% and mildly enlarged left atrium. (2) Essential hypertension: Status: Acute Plan - Alexandru Jacobo DIRECTOR OF AGRICULTURE, DIRECTOR OF AGRICULTURE-C: Patient's blood pressure is well-controlled. We will continue to monitor. We will not make any medication regimen changes. (3) DM2 (diabetes mellitus, type 2): Status: Chronic Qualifiers: Diabetes mellitus detention insulin use: without predatory animal exterminator use Plan - Alexandru Jacobo DIRECTOR OF AGRICULTURE, DIRECTOR OF AGRICULTURE-C: He was reminded of the points of diabetic control in relation to cardiovascular disease. Plan Details Follow Up: 2 Months (DIRECTOR OF AGRICULTURE/PA) 10 Months (PFM) COVID (Procedure Consent) Procedure Criteria Procedure Criteria: Yes Elective The surgeon/proceduralist and patient have discussed in detail the risk of exposure to and/or potential harm posed by the COVID-19 virus with having a surgery/procedure at this time versus the risk of delaying the surgery/procedure. It is not possible to know either the risk of delaying the surgery or procedure or chance of getting an infection with perfect accuracy, but a joint decision was made between the patient and the surgeon/proceduralist to proceed at this time with the scheduled surgery/procedure as indicated on the consent form. Coding Level of Care Code Off vis,est,level 4 Diagnoses New onset atrial fibrillation I48.91 Essential hypertension I10 DM2 (diabetes mellitus, type 2) E11.9 Diabetes mellitus predatory animal exterminator insulin use: without predatory animal exterminator use Coding Level of Care Code Off vis,est,level 4 Diagnoses New onset atrial fibrillation I48.91 Essential hypertension I10 DM2 (diabetes mellitus, type 2) E11.9 Diabetes mellitus predatory animal exterminator insulin use: without detention use Supplemental Info Supplemental Information Echocardiogram from 09/22/2020: Interpretation Summary The study was technically difficult. Contrast injection was performed. Left ventricular systolic function is normal. The estimated ejection fraction is 55 %. Moderate concentric left ventricular hypertrophy. The left atrium is mildly enlarged. Trivial mitral valve insufficiency. Trivial tricuspid valve insufficiency. Borderline enlarge aortic root. Right ventricular systolic pressure estimated to be 37 mmHg. Unable to assess diastolic dysfunction. Chest CTA from 09/22/2020: IMPRESSION: Normal CTA chest examination, without a demonstrated pulmonary embolism or arterial dissection. Labs: No Data to Display Diagnostics: Electrocardiogram Pulmonary: Pulmonary Function Test Pulmonary Exercise Test 11/08/20 0501<Electronically signed by Alexandru Jacobo NP DIRECTOR OF AGRICULTURE-C>Date Alexandru Jacobo NP DIRECTOR OF AGRICULTURE-C Cosigner Signature:Date (if applicable) CC: Dr. Dieudonne Dinero MD ~ I have re-examined the patient. There are no clinical changes since date of exam.
[2020-11-20 11:31] LABS: Anion Gap 5 (5-15); BUN 12 mg/dL (7-18); BUN/Creat Ratio 16.4 RATIO (10-20); Calcium,Total 8.8 mg/dL (8.5-10.1); Chloride 104 mmol/L (98-107); Creatinine, Serum 0.73 mg/dL (0.70-1.30); EST Glomerular Filtration Rate 121 mL/min (>60); Est Glom Filt Rate - Afr Amer 147 mL/min (>60); Estimated Creatinine Clearance 129.17 ml/min; Glucose 117 mg/dL (74-106); Sodium Level 139 mmol/L (136-145)
--- NOTE | 2020-11-20 13:11 | CARDIOVERS_ITS ---
Cardioversion Cardioversion: Date: 11-20-2020 Procedure: Synchronized Biphasic DC Cardioversion Indications: Atrial fibrillation Consent: Per the Patient Anesthesia: per Dr. Shah of pulmonology and critical care medicine with propofol 140 mg IV push total Procedure: Synchronized Biphasic DC Cardioversion: 200 J x 1: Result: Atrial fibrillation Synchronized Biphasic DC Cardioversion: 300 J x 1: Result: Atrial fibrillation Synchronized Biphasic DC Cardioversion: 360 J x 1: Result: Atrial fibrillation Complications: no apparent complications This note was generated with [employer] software. It may contain incorrect words, spelling, and punctuation that were not noted in checking the note before signing.
--- NOTE | 2020-11-20 13:44 | PRO.PCM_ITS ---
Assessment & Plan Assessment/Plan (1) New onset atrial fibrillation: (2) Morbid obesity with BMI of 70 and over, adult: (3) BEATRIZ treated with BiPAP: (4) Essential hypertension: (5) DM2 (diabetes mellitus, type 2): QUALIFIERS: Diabetes mellitus skilled nursing insulin use: without skilled nursing use Procedure Report Date of Procedure: 11/20/20 CONSCIOUS SEDATION REPORT BRIEF HISTORY OF PRESENT ILLNESS: The patient is a 45-year-old male who presented to [facility] for an elective outpatient cardioversion due to underlying atrial fibrillation. The patient reports no PO intake since midnight, but is currently therapeutic on anticoagulation. The patient does have a history of obstructive sleep apnea and is reportedly that is off season compliant with therapy. The patient reports no history of smoking and COPD. The patient denies any recent constitutional symptoms such as fevers, chills, nausea or vomiting. The patient denies previous applicable anesthetic complications. Patient did taking anticoagu lation on the day of the procedure. Last known ejection fraction was 55%. PHYSICAL EXAMINATION: VITAL SIGNS: Reviewed and were acceptable. GENERAL: The patient is a male, in no apparent distress, speaking in full sentences. HEENT: Normocephalic, atraumatic. Mucous membranes are moist and pink. Good mouth opening noted. Trachea is midline. Good neck mobility. MP IV CHEST: S1, S2 irregularly irregular. No murmurs, rubs or gallops were noted. LUNGS: Clear to auscultation bilaterally without appreciable wheezes, rales or rhonchi. ABDOMEN: Soft, nontender, nondistended. Positive bowel sounds. EXTREMITIES: There is no clubbing, cyanosis or edema. ASA Class: II DESCRIPTION OF PROCEDURE: After confirmation of informed consent, the patient's anesthesia plan was reviewed in detail. Propofol was chosen. Risks and benefits were reviewed and the patient agreed to proceed. At 12:25 PM, the patient was given 40 mg of propofol. The patient required a total of 140 mg of propofol throughout the procedure to achieve appropriate sedation. The patient achieved an appropriate level of sedation and received 3 attempt s synchronized cardioversion, at 200 J, 300 J and [address] Ewing at the bedside. This was unsuccessful in achieving normal sinus rhythm. The patient was monitored until 12:45 PM, at which time the patient reached their baseline mental status and function. The patient tolerated the procedure well. COMPLICATIONS: None ESTIMATED BLOOD LOSS: None RECOMMENDATIONS: Okay to recover in usual fashion. Procedures Pulmonary 9xxxx: [id number] Con Sedation Multi Select Codes Hospitalists' Procedures Procedures: Other Procedure - See Report ([id number])
== END 2020-11-20 13:30 | disposition home or self-care (01) ==
LOC: CLSP 10:51
PROVIDERS: Nurse Practitioner Family; PCP Family Medicine; Referring Provider Internal Medicine Cardiovascular Disease; Visit Provider Internal Medicine Cardiovascular Disease
DX: I48.91 Unspecified atrial fibrillation (principal); I11.9 Hypertensive heart disease without heart failure; E11.9 Type 2 diabetes mellitus without complications; G47.33 Obstructive sleep apnea (adult) (pediatric); E66.01 Morbid (severe) obesity due to excess calories; Z68.45 Body mass index [BMI] 70 or greater, adult; Z79.01 Long term (current) use of anticoagulants; Z79.4 Long term (current) use of insulin; Z79.899 Other long term (current) drug therapy; Z87.891 Personal history of nicotine dependence
CPT/HCPCS: 36415; 80048; 92960; 93005; J7040

== ENCOUNTER 2022-05-22 09:05 | Inpatient (IN) | payer BC, SELFPAY ==
[2022-05-22] VITALS (25 sets, daily range): BP systolic 100–141; BP diastolic 59–120; PULSE 95–162; RESP 15–32; TEMP 36.2–36.8; O2SAT 94–99; BMI 69.4; BMI 69.2
--- NOTE | 2022-05-22 09:21 | RAD_ITS ---
STUDY: X-RAY CHEST REASON FOR EXAM: Male, 47 years old. Sudden onset of chest pain. History of atrial fibrillation. TECHNIQUE: Single AP portable view of the chest. COMPARISON: Comparison is made with prior study dated 09/22/2020. FINDINGS: EKG electrodes are seen. Vascular congestion and mild CHF. There is no demonstrated pleural abnormality. There is mild cardiac enlargement. Normal mediastinum and yanci. Normal visualized pulmonary arteries. Normal visualized aortic arch and descending thoracic aorta. Normal visualized thoracic spine. Normal visualized ribs, clavicles, and shoulders. There is no demonstrated abnormality of the visualized soft tissue structures of the upper abdomen. RAD/Chest 1 View (Portable) IMPRESSION: Mild cardiomegaly and mild degree of CHF. Electronically Signed: Jourdan Calderon MD at 9:53 EST ,
--- NOTE | 2022-05-22 09:25 | ED.VIS.CHEST ---
HPI History of Present Illness Chief Complaint: Chest Pain Detail of Chief Complaint: Midsternal chest pain with a history of A. fib and now A. fib RVR. Informant: patient Onset/Context/Timing Onset: Today and Hours Activity at onset: sudden Timing: Continuous Quality: Positive for Aching Location: Substernal Current Severity: Mild Maximum Severity: Mild Worsened By: Nothing Relieved By: Nothing Associated Symptoms: Positive for Dyspnea and Palpitations; Negative for Nausea, Vomiting, Diaphoresis, Cough, Fever, Lightheadedness or Acid Reflux Narrative Narrative: 47-year-old male history of A. fib and borderline diabetes on Eliquis and Cardizem. States today around 7:30 AM midsternal chest pain. He typically does not get that with his A. fib. Also associated shortness of breath. No leg pain or swelling. No hemoptysis. Prior Similar Symptoms: No Recent Illness/Hospitalization: No CVD Risk Factors: Positive for Hypertension PE Risk Factors: Negative for Recent Travel/Surgery, Recent Immobilization, Prior DVT or PE, Cancer or OCP + Smoking + >/=35 TAD Risk Factors: Negative for Marfan's Syndrome [facility] Medical History Essential hypertension Morbid obesity with BMI of 70 and over, adult New onset atrial fibrillation BEATRIZ treated with BiPAP Persistent atrial fibrillation Home Medications ergocalciferol (vitamin D2) 1,250 mcg (50,000 unit) capsule 1,250 mcg PO QWEEK Supplement 09/22/20 [History Last Taken Unknown] lisinopril 10 mg tablet 10 mg PO DAILY Blood Pressure 09/22/20 [History Last Taken 11/20/20] metformin 500 mg 24 hr tablet,extended release 500 mg PO DAILY Diabetes 09/22/20 [History Last Taken Unknown] albuterol sulfate 90 mcg/actuation aerosol inhaler 1 inh inhalation Q8H PRN shortness of breath or wheezing #8.5 grams 09/25/20 [Rx Last Taken Unknown] apixaban 5 mg tablet (Eliquis) 5 mg PO BID 30 days #60 tabs 09/25/20 [Rx Last Taken 11/20/20] diltiazem HCl 180 mg capsule,extended release 24 hr 180 mg PO Q12 30 days #60 caps 09/25/20 [Rx Last Taken 11/20/20] furosemide 40 mg tablet (Lasix) 40 mg PO DAILY #30 tabs 09/25/20 [Rx Last Taken Unknown] Allergy/AdvReac Type Severity Reaction Status Date / Time No Known Allergies Allergy Verified 05/22/22 09:08 Family History Aunt Breast cancer Grandfather Cancer Liver Grandmother Muscular dystrophy Surgical History History of gastric restrictive surgery (~2010) Social History Smoking Status: Former smoker how long ago did patient quit smokin years ago alcohol intake: current alcohol intake frequency: holidays/special occasions only substance use type: does not use caffeine: Yes Type: carbonated beverages, coffee and tea ROS ROS ED ROS Narrative Chest pain. Palpitations. Review of Systems ROS Unobtainable: Denies due to encephalopathy Constitutional Constitutional ED: Denies chills or fever(s) Eyes Eyes: Reports none ENT ENT ED: Denies ear pain Cardiovascular Cardiovascular: Reports as per HPI, chest pain, palpitations and racing heartbeat Respiratory/Chest Respiratory/Chest: Reports dyspnea; Denies cough Gastrointestinal Gastrointestinal: Denies abdominal pain Genitourinary Genitourinary ED: Denies dysuria Musculoskeletal Musculoskeletal: Denies arthralgias Integumentary Denies abscess Neurologic Neurologic: Denies headache(s) Psychiatric Psychiatric: Denies anxiety Endocrine Endocrinology: Denies cold intolerance Hematologic/Lymphatic Hematologic/Lymphatic: Denies easy bleeding Allergic/Immunologic Allergic/Immunologic ED: Denies mouth swelling or tongue swelling EXAM Physical Exam Narrative Exam Narrative: 47-year-old male vital signs are stable except heart rate 162. A. fib RVR on the monitor. Blood pressure 120/110. Pulse ox 94% on room air no hypoxia. H EENT exam unremarkable. Atraumatic. Neck nontender. No JVD. Lungs clear to auscultation bilaterally. Heart A. fib RVR rate in 160s. Chest were nontender. Abdomen soft nontender. Normal bowel sounds no peritoneal signs. Morbidly obese. Moving all 4 extremities. Calves are nontender. Neurologically is awake and alert with no focal motor deficits. Const Vital Signs: 05/22/22 09:06 05/22/22 09:09 05/22/22 09:39 Temperature 97.2 F L Temperature Source Temporal Pulse Rate 162 H 121 H Respiratory Rate 29 H 16 Respiratory Effort Short of Breath Blood Pressure 123/110 H 124/79 H Blood Pressure Mean 114 94 Pulse Ox 94 97 Oxygen Delivery Method Room Air Room Air 05/22/22 10:31 Temperature Temperature Source Pulse Rate 124 H Respiratory Rate 22 H Respiratory Effort Blood Pressure 123/100 H Blood Pressure Mean 107 Pulse Ox 94 Oxygen Delivery Method Positive well nourished, well developed and obese; Negative for cachectic, contractures or unkempt General Appearance ED: well developed; Negative for unkempt, cachectic, contractures, NAD or pallor Nutritional Appearance: obese; Negative for cachectic HEENT Reports moist mucous membranes; Denies dry mucous membranes normocephalic and atraumatic; Negative for trauma or tenderness Mouth ED: No dry mucous membranes Mouth: No dry mucous membranes Eyes PERRL and EOMs intact bilaterally General Eye ED: Negative for pale conjunctiva or scleral icterus Neck no lymphadenopathy, supple and no JVD General: Negative for tenderness Chest Wall inspection of chest normal and palpation of chest normal Chest: Negative for tenderness Resp normal respiratory effort and clear to auscultation bilaterally Effort and Inspection: Negative for respiratory distress Auscultation: Negative for rales, rhonchi or wheezes Cardio S1 normal heart sound and S2 normal heart sound; Negative for regular rate or regular rhythm Rate: tachycardic GI normal to inspection, nondistended, normoactive bowel sounds, soft to palpation, non-tender and non-distended Back/Spine no CVA tenderness and no thoracic nor lumbar tenderness General Back: Negative for CVA tenderness Cervical Spine: Negative for cervical spine tenderness Extremity normal to inspection General Extremety ED: Negative for edema General Extremity: Negative for edema Neuro oriented x3 and CN's II-XII intact bilaterally Sensorium / Orientation: awake, alert, oriented to person, oriented to place and oriented to time; Negative for confused, lethargic or stuporous Motor Exam: strength 5/5 throughout Psych mental status grossly normal Appearance: Negative for unkempt Attitude: No agitated Mood & Affect: Negative for depressed, anxious or tearful Skin no rashes or lesions noted General Skin Exam: Negative for jaundice or pallor Rashes: No rashes noted Trauma: Negative for abrasion Heart Score History: Moderately Suspicious Age: >45 - <65 years Risk Factors: 1 or 2 Risk Factors Troponin: </= Normal Limit Score: 3 MDM MDM MDM Narrative Medical decision making narrative: 47-year-old male with A. fib RVR rate in the 160s with chest pain. Will undergo cardiac work-up. He will be treated with IV Cardizem to try to control his rate. Repeat exam patient is doing well however he still in A. fib heart rate of 130. At this point his first dose of Cardizem. Will be started on a Cardizem drip. He will be given aspirin. I have the hospitalist on page to admit the patient to the PCU. Lab Data Attestation: I reviewed the patient's lab results. Lab results narrative: CBC normal white count 8. H&H 14.3 and 45. Electrolytes unremarkable gap of 1 BUN and creatinine of 15 and 0.8. Glucose 141. Troponin was 11. Chest x-ray shows cardiomegaly and some mild CHF. Labs: Laboratory Results - last 24 hr 05/22/22 05/22/22 09:15 09:15 WBC 8.8 RBC 5.03 Hgb 14.3 Hct 45.7 MCV 90.9 MCH 28.4 MCHC 31.3 L RDW Std Deviation 48.2 H RDW Coeff of Dominga 14.6 Plt Count 257 MPV 10.4 Immature Gran % (Auto) 0.600 Neut % (Auto) 72.2 H Lymph % (Auto) 15.0 L [place] % (Auto) 7.7 Eos % (Auto) 3.6 Baso % (Auto) 0.9 Absolute Neuts (auto) 6.4 Absolute Lymphs (auto) 1.32 Nucleated RBC % 0 Sodium 140 Potassium 4.3 Chloride 108 H Carbon Dioxide 31.0 Anion Gap 1 L BUN 15 Creatinine 0.88 Estim Creat Clear Calc 104.85 Est GFR (MDRD) Af Amer 119 Est GFR (MDRD) Non-Af 98 BUN/Creatinine Ratio 17.1 Glucose 141 H Calcium 9.4 Troponin I High Sens 11 Radiography Chest X-Ray - ED: 1 View, Read by ED Physician, Mediastinum, Bony Structures, Chronic Changes, Cardiomegaly and CHF Diagnostic Testing: Clinical Impression(s) from Imaging Studies Chest X-Ray 05/22/22 09:21 IMPRESSION: Mild cardiomegaly and mild degree of CHF. Electronically Signed: Jourdan Calderon MD at 9:53 EST , Chest x-ray normal, single view interpreted both by myself and the radiologist shows cardiomegaly and mild CHF. Rhythm Strip Rhythm Strip: A-fib Rate: 154 EKG Initial EKG: Attestation: I personally reviewed and interpreted this EKG as follows: Interpretation: No Acute Injury Pattern and Atrial Fibrillation Comments: 80 fib with rapid ventricular rate. Rate 154. No acute signs of FL or ischemia. Discharge Plan Triage Chief Complaint: Chest Pain ED Provider: Noel Saleh Dx/Rx/DC Orders Clinical Impression: Atrial fibrillation with rapid ventricular response, CHF (congestive heart failure), History of diabetes mellitus, Chronic anticoagulation, Chest pain Prescriptions: No Action lisinopril 10 MG tablet 10 mg PO DAILY ergocalciferol (vitamin D2) 50,000 UNIT capsule 1,250 mcg PO QWEEK metformin 500 MG tablet,ER annia.retention 24 hr 500 mg PO DAILY diltiazem HCl 180 mg Capsule,Extended Release 24hr 180 mg PO Q12 30 Days Qty: 60 0RF Eliquis 5 mg Tablet 5 mg PO BID 30 Days Qty: 60 0RF furosemide [Lasix] 40 mg tablet 40 mg PO DAILY Qty: 30 0RF albuterol sulfate 90 mcg/actuation HFA aerosol inhaler 1 inh inhalation Q8H PRN (Reason: shortness of breath or wheezing) Qty: 8.5 0RF Primary Care Provider: Dieudonne Dinero Referrals: Dieudonne Dinero MD [Primary Care Provider] - Disposition Disposition: Acute Care Hospital [facility]
[2022-05-22] MEDS: dilTIAZem 25 MG/5 ML Vial IV BOLUS (09:26)
[2022-05-22 09:30] LABS: Absolute Lymphocyte Count 1.32 X10^3/uL (0.83-4.51); Absolute Neutrophil Count 6.4 X10^3/uL (2.0-7.7); Basophil# 0.08 X10^3/uL; Basophil% 0.9 % (0-1); Eosinophil# 0.32 X10^3/uL; Eosinophils% 3.6 % (0-5); Hematocrit 45.7 % (40-54); Hemoglobin 14.3 g/dL (13.0-16.5); Lymphocyte # 1.32 X10^3/ul (0.83-4.51); Mean Corp Hgb Conc 31.3 g/dL (32-36); Mean Corpuscular Hgb 28.4 pg (27.0-32.0); Mean Corpuscular Volume 90.9 fL (80-94); Mean Platelet Vol. 10.4 fl (6.2-12.0); Monocyte# 0.68 X10^3/uL; Monocyte% 7.7 % (0-10); NRBC Flagged by Analyzer 0 % (0-5); Neutrophil # 6.35 X10^3/uL (2.7-7.7); Neutrophil % 72.2 % (47-70); Platelet Count 257 K/mm3 (150-450); RBC Distribution Width CV 14.6 % (11.6-14.6); RBC Distribution Width SD 48.2 fl (35.1-43.9); Red Blood Count 5.03 M/mm3 (4.6-6.2); White Blood Count 8.8 K/mm3 (4.4-11.0)
[2022-05-22 09:45] LABS: Anion Gap 1 (5-15); BUN 15 mg/dL (7-18); BUN/Creat Ratio 17.1 RATIO (10-20); Calcium,Total 9.4 mg/dL (8.5-10.1); Chloride 108 mmol/L (98-107); Creatinine, Serum 0.88 mg/dL (0.70-1.30); EST Glomerular Filtration Rate 98 mL/min (>60); Est Glom Filt Rate - Afr Amer 119 mL/min (>60); Estimated Creatinine Clearance 104.85 ml/min; Glucose 141 mg/dL (74-106); Potassium 4.3 mmol/L (3.5-5.1); Sodium Level 140 mmol/L (136-145); Troponin-I HS (w/2H Reflex) 11 pg/mL (3.0-78.0)
[2022-05-22 11:25] LABS: Reflex Troponin-HS? (from REC) Y
[2022-05-22] MEDS: Aspirin 325 MG Tablet PO (11:29)
[2022-05-22 12:07] LABS: Troponin-I HS 10 pg/mL (3.0-78.0)
--- NOTE | 2022-05-22 12:14 | ECHOCS_ITS ---
Reason For Study: ATRIAL FIB-FLUTTER Procedure This was a 2D Doppler, Color Flow transthoracic echocardiogram. The study was technically difficult. Due to body habitus 483#. Contrast injection was performed. Exam performed portable in patient room. Left Ventricle Mildly dilated left ventricle. Mild concentric left ventricular hypertrophy. The estimated ejection fraction is 50-55 %. Right Ventricle Normal right ventricle. Normal systolic function. Atria The left atrium is moderately enlarged. Mitral Valve The mitral valve is structurally normal. No prolapse or stenosis seen. Trivial mitral valve insufficiency. Tricuspid Valve Normal tricuspid valve. Aortic Valve Normal aortic valve. Pulmonic Valve The pulmonic valve is not well visualized. Great Vessels Mild to moderately dilated aortic root. Pericardium/Pleural No pericardial effusion. Medication Diluted definity 4.0ml given slow IV push to enhance endocardial definition. MMode/2D Measurements & Calculations LVIDd: 7.0 cm IVSd: 1.4 cm Ao root diam: 4.2 cm LVIDs: 5.7 cm LVPWd: 1.3 cm RVDd: 3.7 cm FS: 18.4 % LAV(MOD-sp2): 90.1 ml LA A4 area: 24.8 cm2 LA dimension(2D): 5.8 cm RA A4 area: 22.0 cm2 Doppler Measurements & Calculations MV E max alvin: 74.4 cm/sec Ao V2 max: 84.5 cm/sec LV V1 max: 68.5 cm/sec Ao max P.9 mmHg LV V1 max P.9 mmHg PA V2 max: 86.0 cm/sec TR max alvin: 224.1 cm/sec TR max P.1 mmHg ECHO/Echo Complete W/ Contrast Interpretation Summary TDS The estimated ejection fraction is 50-55 %. Mild Aortic Root Enlargmenet Moderate LAE,Patient in A.fib No significant difference from Echo study in 09/24/2020 Ordering Physician: Shmuel Cox Referring Physician: Dieudonne Dinero Performed By: Rimma Prince, MAIACS, RVT
[2022-05-22 13:26] LABS: Bedside Glucose 122 mg/dL (74-106)
--- NOTE | 2022-05-22 14:21 | HP.PCM.HOS_ITS ---
HPI - General General Date of Admission: 05/22/22 HPI Narrative FAIZA TONEY, is a 47 M who presents to the hospital with chest pain that started earlier today. He says it is mostly located in the middle of his chest but does occasionally radiate up into his jaw. He denies any significant palpitations and does not have any lightheadedness. In the ER he was found to be in A. fib with RVR, he does have a known he of A. fib and is on rate control medication for this. Initial bone ER was unremarkable at 11 and repeat is down to 10. [facility] Medical History Essential hypertension Morbid obesity with BMI of 70 and over, adult New onset atrial fibrillation BEATRIZ treated with BiPAP Persistent atrial fibrillation Home Medications lisinopril 10 mg tablet 10 mg PO DAILY BLOOD PRESSURE 09/22/20 [History Last Taken 05/21/22] metformin 500 mg 24 hr tablet,extended release 500 mg PO DAILY DIABETES 09/22/20 [History Last Taken Unknown] albuterol sulfate 90 mcg/actuation aerosol inhaler 1 inh inhalation Q8H PRN shortness of breath or wheezing #8.5 grams 09/25/20 [Rx Last Taken 05/22/22] apixaban 5 mg tablet (Eliquis) 5 mg PO BID BLOOD THINNER 05/22/22 [History Last Taken 05/22/22] diltiazem HCl 180 mg capsule,extended release 24 hr 180 mg PO Q12 BLOOD PRESSURE 05/22/22 [History Last Taken 05/22/22] furosemide 40 mg tablet (Lasix) 40 mg PO DAILY EDEMA 05/22/22 [History Last Taken Unknown] multivitamin 1 tab PO DAILY HEALTH MAINTENANCE 05/22/22 [History Last Taken 05/21/22] Allergy/AdvReac Type Severity Reaction Status Date / Time No Known Allergies Allergy Verified 05/22/22 09:08 Family History Aunt Breast cancer Grandfather Cancer Liver Grandmother Muscular dystrophy Surgical History History of gastric restrictive surgery (~2010) Social History Smoking Status: Former smoker how long ago did patient quit smokin years ago alcohol intake: current alcohol intake frequency: holidays/special occasions only substance use type: does not use caffeine: Yes Type: carbonated beverages, coffee and tea ROS Constitutional Constitutional: Denies chills, fatigue, fever(s) or malaise Eyes Eyes: Denies blurry vision ENT HEENT: Denies headache(s) or nasal discharge Cardiovascular Cardiovascular: Reports chest pain; Denies dyspnea on exertion or syncope Respiratory/Chest Respiratory/Chest: Denies cough, shortness of breath at rest or shortness of breath with exertion Gastrointestinal Gastrointestinal: Denies constipation, diarrhea, nausea or vomiting Genitourinary Genitourinary: Denies dysuria Neurologic Neurologic: Denies focal weakness, numbness or tremor(s) Psychiatric Psychiatric: Denies anxiety or depression Vital Signs Vital Signs Vital Signs: 05/22/22 09:06 05/22/22 09:09 05/22/22 09:39 Temperature 97.2 F L Temperature Source Temporal Pulse Rate 162 H 121 H Respiratory Rate 29 H 16 Respiratory Effort Short of Breath Respiratory Depth Respiratory Pattern Blood Pressure 123/110 H 124/79 H Blood Pressure Mean 114 94 Blood Pressure Source Blood Pressure Position Blood Pressure Location Pulse Ox 94 97 Oxygen Delivery Method Room Air Room Air 05/22/22 10:31 05/22/22 11:29 05/22/22 11:33 Temperature 98.2 F Temperature Source Oral Pulse Rate 124 H 141 H 137 H Respiratory Rate 22 H 24 H 23 H Respiratory Effort Respiratory Depth Respiratory Pattern Blood Pressure 123/100 H 114/87 H 122/83 H Blood Pressure Mean 107 96 96 Blood Pressure Source Monitor Blood Pressure Position Blood Pressure Location Pulse Ox 94 96 96 Oxygen Delivery Method Room Air Room Air 05/22/22 11:33 05/22/22 12:19 05/22/22 12:30 Temperature 98.2 F 98.3 F Temperature Source Oral Oral Pulse Rate 141 H 121 H 123 H Respiratory Rate 17 19 H 25 H Respiratory Effort Respiratory Depth Respiratory Pattern Blood Pressure 122/83 H 115/83 H 120/89 H Blood Pressure Mean 96 93 99 Blood Pressure Source Monitor Monitor Blood Pressure Position Semi-Fowlers Semi-Fowlers Blood Pressure Location Left Forearm Left Forearm Pulse Ox 96 98 99 Oxygen Delivery Method Room Air Room Air Room Air 05/22/22 12:45 05/22/22 13:00 05/22/22 12:17 Temperature Temperature Source Pulse Rate 127 H 126 H 140 H Respiratory Rate 22 H 27 H Respiratory Effort Respiratory Depth Respiratory Pattern Blood Pressure 104/69 115/88 H Blood Pressure Mean 80 97 Blood Pressure Source Monitor Monitor Blood Pressure Position Semi-Fowlers Semi-Fowlers Blood Pressure Location Left Forearm Left Forearm Pulse Ox 96 96 Oxygen Delivery Method Room Air Room Air 05/22/22 12:45 Temperature Temperature Source Pulse Rate Respiratory Rate Respiratory Effort Normal Non-Labored Respiratory Depth Normal Respiratory Pattern Normal Blood Pressure Blood Pressure Mean Blood Pressure Source Blood Pressure Position Blood Pressure Location Pulse Ox Oxygen Delivery Method Room Air Weight Weight: 483 lb Body Mass Index (BMI) 69.2 Physical Exam Narrative And general: Alert, Oriented x3, Cooperative, No apparent distress, morbidly obese HEENT: Atraumatic, PERRLA, EOMI, Normocephalic Oral: Moist Mucosa Neck: Supple, No JVD Lungs: Clear to auscultation, Normal air movement, No rhonchi, No wheeze, No rales Cardiovascular: Irregular rate and rhythm, Normal S1, Normal S2, No murmurs Abdomen: Soft, Non Tender, Non-Distended, No Hepato-splenomegaly Extremities: No edema, Capillary Refill Less than 3 Seconds Skin: No rashes, No breakdown Musculoskeletal: No Tenderness to Palpation of Joints or Extremities Neurological: Cranial nerves II-XII grossly intact, Motor Exam 5/5 strength throughout, Sensory exam intact to light touch and pain Psych/Mental Status: Normal Affect, Appropriate Results Lab / Micro Data Result Diagrams: 05/22/22 09:15 05/22/22 09:15 Labs: Laboratory Results - last 24 hr 05/22/22 09:15: WBC 8.8, RBC 5.03, Hgb 14.3, Hct 45.7, MCV 90.9, MCH 28.4, MCHC 31.3 L, RDW Std Deviation 48.2 H, RDW Coeff of Dominga 14.6, Plt Count 257, MPV 10.4, Immature Gran % (Auto) 0.600, Neut % (Auto) 72.2 H, Lymph % (Auto) 15.0 L, [place] % (Auto) 7.7, Eos % (Auto) 3.6, Baso % (Auto) 0.9, Absolute Neuts (auto) 6.4, Absolute Lymphs (auto) 1.32, Nucleated RBC % 0 05/22/22 09:15: Sodium 140, Potassium 4.3, Chloride 108 H, Carbon Dioxide 31.0, Anion Gap 1 L, BUN 15, Creatinine 0.88, Estim Creat Clear Calc 104.85, Est GFR (MDRD) Af Amer 119, Est GFR (MDRD) Non-Af 98, BUN/Creatinine Ratio 17.1, Glucose 141 H, Calcium 9.4, Troponin I High Sens 11 05/22/22 11:45: Troponin I High Sens 10 05/22/22 13:04: POC Glucose 122 H Rhythm Strip Rhythm Strip: A-fib Rate: 154 Radiology Impression Chest X-Ray 05/22/22 09:21 IMPRESSION: Mild cardiomegaly and mild degree of CHF. Electronically Signed: Jourdan Calderon MD at 9:53 EST , Assessment & Plan Assessment/Plan (1) Atrial fibrillation with rapid ventricular response: PLAN: Plan 1. A. fib with RVR/HTN/HLD/morbid obesity ? BMI of 70, discussed lifestyle modifications he did have a previous gastric sleeve done about 10 years ago ? I will place him on a Cardizem drip and also start him on oral metoprolol ho pefully this will allow him to convert and we can transition him back to his oral Cardizem ? Will continue with his Lasix and lisinopril ? Continue with Eliquis ? His last echo was in 2020 so we will repeat 2. DM2 ? We will hold his metformin and place him on sliding scale insulin ? Accu-Cheks AC at bedtime ? We will continue to monitor and follow DVT: Eliquis Charges/Coding Visit Charges Inpatient E&M: 21246 Init Hosp L2
[2022-05-22] MEDS: Morphine 2 MG/ML Syringe IV (14:52)
[2022-05-22] MEDS: 0.9% Saline Lock 10 ML Syringe IV (14:52)
[2022-05-22 17:05] LABS: Bedside Glucose 143 mg/dL (74-106)
[2022-05-22 17:21] LABS: Troponin-I HS 7 pg/mL (3.0-78.0)
[2022-05-22 18:34] LABS: Thyroid Stim Hormone (TSH) 1.33 uIU/mL (0.358-3.74)
[2022-05-22] MEDS: Metoprolol Tartrate 25 MG Tablet PO (20:19)
[2022-05-22] MEDS: APIXABAN 5 MG TABLET PO (20:19)
[2022-05-22 23:00] LABS: Bedside Glucose 105 mg/dL (74-106)
[2022-05-23] VITALS (25 sets, daily range): BP systolic 83–160; BP diastolic 54–98; PULSE 77–107; RESP 18–29; TEMP 36.3–36.8; O2SAT 92–98
[2022-05-23 07:03] LABS: Absolute Lymphocyte Count 1.47 X10^3/uL (0.83-4.51); Absolute Neutrophil Count 6.4 X10^3/uL (2.0-7.7); Basophil# 0.08 X10^3/uL; Basophil% 0.9 % (0-1); Eosinophils% 3.2 % (0-5); Hematocrit 41.2 % (40-54); Lymphocyte # 1.47 X10^3/ul (0.83-4.51); Lymphocyte % 15.8 % (19-41); Mean Corp Hgb Conc 31.6 g/dL (32-36); Mean Corpuscular Hgb 28.3 pg (27.0-32.0); Mean Corpuscular Volume 89.8 fL (80-94); Mean Platelet Vol. 10.3 fl (6.2-12.0); Monocyte# 1.03 X10^3/uL; Monocyte% 11.1 % (0-10); NRBC Flagged by Analyzer 0 % (0-5); Neutrophil % 68.7 % (47-70); Platelet Count 233 K/mm3 (150-450); RBC Distribution Width CV 15.1 % (11.6-14.6); RBC Distribution Width SD 49.1 fl (35.1-43.9); Red Blood Count 4.59 M/mm3 (4.6-6.2); White Blood Count 9.3 K/mm3 (4.4-11.0)
[2022-05-23 07:11] LABS: Bedside Glucose 123 mg/dL (74-106)
[2022-05-23 07:38] LABS: Anion Gap 5 (5-15); BUN 17 mg/dL (7-18); BUN/Creat Ratio 19.1 RATIO (10-20); Calcium,Total 8.8 mg/dL (8.5-10.1); Chloride 104 mmol/L (98-107); Creatinine, Serum 0.89 mg/dL (0.70-1.30); EST Glomerular Filtration Rate 96 mL/min (>60); Est Glom Filt Rate - Afr Amer 117 mL/min (>60); Estimated Creatinine Clearance 103.67 ml/min; Glucose 131 mg/dL (74-106); Potassium 3.9 mmol/L (3.5-5.1); Sodium Level 137 mmol/L (136-145)
[2022-05-23] MEDS: Metoprolol Tartrate 25 MG Tablet PO ×2 (09:16→12:22)
[2022-05-23] MEDS: Lisinopril 10 MG Tablet PO (09:16)
[2022-05-23] MEDS: Furosemide 40 MG Tablet PO (09:16)
[2022-05-23] MEDS: APIXABAN 5 MG TABLET PO ×2 (09:16→21:35)
--- NOTE | 2022-05-23 10:28 | PCM.PN.HOSP ---
Subjective Subjective Doing well, his chest pain has resolved. He still in A. fib though rate is much better controlled Objective Data Objective Data Vital Signs: Vital Signs Temp Pulse Resp BP Pulse Ox O2 Del Method O2 Flow Rate 98.1 F 87 22 H 120/87 H 94 Room Air 4 05/23/22 07:00 05/23/22 10:00 05/23/22 10:00 05/23/22 10:00 05/23/22 10:00 05/23/22 10:00 05/23/22 08:00 Oxygen Flow Rate (L/min) 4 Oxygen Delivery Method Room Air Weight: 482 lb 15.996 oz Body Mass Index (BMI) 69.2 Intake & Output: Intake and Output for Last 24 Hours 05/22/22 05/23/22 05/24/22 03:59 03:59 03:59 Intake Total 942.25 / 942.25 360 / 360 Balance 942.25 / 942.25 360 / 360 Lab / Micro Data Result Diagrams: 05/23/22 06:25 05/23/22 06:25 Labs: Laboratory Results - last 24 hr 05/22/22 11:45: Troponin I High Sens 10 05/22/22 13:04: POC Glucose 122 H 05/22/22 16:30: Troponin I High Sens 7 05/22/22 16:30: TSH 1.33 05/22/22 16:47: POC Glucose 143 H 05/22/22 20:17: POC Glucose 105 05/23/22 06:25: WBC 9.3, RBC 4.59 L, Hgb 13.0, Hct 41.2, MCV 89.8, MCH 28.3, MCHC 31.6 L, RDW Std Deviation 49.1 H, RDW Coeff of Dominga 15.1 H, Plt Count 233, MPV 10.3, Immature Gran % (Auto) 0.300, Neut % (Auto) 68.7, Lymph % (Auto) 15.8 L, [place] % (Auto) 11.1 H, Eos % (Auto) 3.2, Baso % (Auto) 0.9, Absolute Neuts (auto) 6.4, Absolute Lymphs (auto) 1.47, Nucleated RBC % 0 05/23/22 06:25: Sodium 137, Potassium 3.9, Chloride 104, Carbon Dioxide 28.0, Anion Gap 5, BUN 17, Creatinine 0.89, Estim Creat Clear Calc 103.67, Est GFR (MDRD) Af Amer 117, Est GFR (MDRD) Non-Af 96, BUN/Creatinine Ratio 19.1, Glucose 131 H, Calcium 8.8 05/23/22 06:42: POC Glucose 123 H Radiography Diagnostic Testing: Radiology Impression Echocardiogram 05/22/22 12:14 Interpretation Summary TDS The estimated ejection fraction is 50-55 %. Mild Aortic Root Enlargmenet Moderate LAE,Patient in A.fib No significant difference from Echo study in 09/24/2020 Ordering Physician: Shmuel Cox Referring Physician: Dieudonne Dinero Performed By: Rimma Prince, CARMELLA, RVT Rhythm Strip Rhythm Strip: A-fib Rate: 154 Physical Exam Narrative And general: Alert, Oriented x3, Cooperative, No apparent distress, morbidly obese HEENT: Atraumatic, PERRLA, EOMI, Normocephalic Oral: Moist Mucosa Neck: Supple, No JVD Lungs: Clear to auscultation, Normal air movement, No rhonchi, No wheeze, No rales Cardiovascular: Regular rate and irregular rhythm, Normal S1, Normal S2, No murmurs Abdomen: Soft, Non Tender, Non-Distended, No Hepato-splenomegaly Extremities: No edema, Capillary Refill Less than 3 Seconds Skin: No rashes, No breakdown Musculoskeletal: No Tenderness to Palpation of Joints or Extremities Neurological: Cranial nerves II-XII grossly intact, Motor Exam 5/5 strength throughout, Sensory exam intact to light touch and pain Psych/Mental Status: Normal Affect, Appropriate Assessment & Plan Assessment/Plan (1) Atrial fibrillation with rapid ventricular response: PLAN: Plan 1. A. fib with RVR/HTN/HLD/morbid obesity ? BMI of 70, discussed lifestyle modifications he did have a previous gastric sleeve done about 10 years ago ? Now that his heart rate is back under control even though he is still in A. fib we will restart his oral Cardizem and increase his p.o. metoprolol to 50 mg twice daily and then can discontinue his Cardizem drip ? Will continue with his Lasix and lisinopril ? Continue with Eliquis ? His last echo was in 2020, repeat echo is unchanged 2. DM2 ? We will hold his metformin and place him on sliding scale insulin ? Accu-Cheks AC at bedtime ? We will continue to monitor and follow DVT: Julieta Charges/Coding Visit Charges Inpatient E&M: 70936 Subs Hosp L2
[2022-05-23 12:00] LABS: Bedside Glucose 135 mg/dL (74-106)
[2022-05-23] MEDS: dilTIAZem CD 180 MG Capsule PO ×2 (12:22→21:35)
--- NOTE | 2022-05-23 16:11 | CASEMGMT ---
SYDNEY SANABRIA DC Planning Assessment: Face to Face with patient for initial transition planning/care coordination assessment.? SYDNEY SANABRIA introduced self and role at [facility], voices understanding.? Care providers, pharmacy,?and demographics verified. ? PCP: [facility] Specialists:None Preferred Pharmacy:[facility] Insurance: [place] Prescription Benefit:?Yes Living Will/HPOA: No LNOK: pt states his emergency contact is his ex- Amita Living Arrangements: Pt lives alone in a bilevel house with 3 steps to enter. Pt states he is independent with ADLs including cooking and household tasks. Transportation: Pt drives DME/HHC/SNF: none ? Plan: Return home. Pt denies any needs or concerns with returning home at discharge. Cat Reyes RN CM
[2022-05-23 17:10] LABS: Bedside Glucose 111 mg/dL (74-106)
[2022-05-23] MEDS: Metoprolol Tartrate 25 MG Tablet 50 MG PO (21:41)
[2022-05-23 22:11] LABS: Bedside Glucose 114 mg/dL (74-106)
[2022-05-24] VITALS (7 sets, daily range): BP systolic 111–135; BP diastolic 71–83; PULSE 64–96; RESP 18; TEMP 36.4–36.7; O2SAT 92–95
[2022-05-24 06:45] LABS: Bedside Glucose 104 mg/dL (74-106)
[2022-05-24] MEDS: dilTIAZem CD 180 MG Capsule PO (09:11)
[2022-05-24] MEDS: Furosemide 40 MG Tablet PO (09:11)
[2022-05-24] MEDS: APIXABAN 5 MG TABLET PO (09:11)
[2022-05-24] MEDS: Lisinopril 10 MG Tablet PO (09:11)
[2022-05-24] MEDS: Metoprolol Tartrate 25 MG Tablet 50 MG PO (09:11)
--- NOTE | 2022-05-24 10:53 | PCM.PN.HOSP ---
Subjective Subjective Doing well, no issues overnight. Chest pain is completely resolved and his heart rate is back to normal however he is still in A. fib on telemetry Objective Data Objective Data Vital Signs: Vital Signs Temp Pulse Resp BP Pulse Ox O2 Del Method O2 Flow Rate 98.1 F 96 18 135/83 H 93 Room Air 2 05/24/22 09:09 05/24/22 09:11 05/24/22 09:09 05/24/22 09:09 05/24/22 09:09 05/24/22 09:09 05/24/22 07:28 Oxygen Flow Rate (L/min) 2 Oxygen Delivery Method Room Air Weight: 482 lb 15.996 oz Body Mass Index (BMI) 69.2 Intake & Output: Intake and Output for Last 24 Hours 05/23/22 05/24/22 05/25/22 03:59 03:59 03:59 Intake Total 942.25 / 942.25 1542.0 / 1542.0 Balance 942.25 / 942.25 1542.0 / 1542.0 Lab / Micro Data Result Diagrams: 05/23/22 06:25 05/23/22 06:25 Labs: Laboratory Results - last 24 hr 05/23/22 11:40: POC Glucose 135 H 05/23/22 16:29: POC Glucose 111 H 05/23/22 21:31: POC Glucose 114 H 05/24/22 06:04: POC Glucose 104 Rhythm Strip Rhythm Strip: A-fib Rate: 154 Physical Exam Narrative And general: Alert, Oriented x3, Cooperative, No apparent distress, morbidly obese HEENT: Atraumatic, PERRLA, EOMI, Normocephalic Oral: Moist Mucosa Neck: Supple, No JVD Lungs: Clear to auscultation, Normal air movement, No rhonchi, No wheeze, No rales Cardiovascular: Regular rate and irregular rhythm, Normal S1, Normal S2, No murmurs Abdomen: Soft, Non Tender, Non-Distended, No Hepato-splenomegaly Extremities: No edema, Capillary Refill Less than 3 Seconds Skin: No rashes, No breakdown Musculoskeletal: No Tenderness to Palpation of Joints or Extremities Neurological: Cranial nerves II-XII grossly intact, Motor Exam 5/5 strength throughout, Sensory exam intact to light touch and pain Psych/Mental Status: Normal Affect, Appropriate Assessment & Plan Assessment/Plan (1) Atrial fibrillation with rapid ventricular response: PLAN: Plan 1. A. fib with RVR/HTN/HLD/morbid obesity ? BMI of 70, discussed lifestyle modifications he did have a previous gastric sleeve done about 10 years ago ?He has been able to stay off of the Cardizem drip for close to 24 hours now, he is on his home p.o. Cardizem +50 mg of metoprolol p.o. twice daily ? Will continue with his Lasix and lisinopril ? Continue with Eliquis ? His last echo was in 2020, repeat echo is unchanged ? Given the fact that he is still in A. fib despite having a normal rate we will consult cardiology 2. DM2 ? We will hold his metformin and place him on sliding scale insulin ? Accu-Cheks AC at bedtime ? We will continue to monitor and follow DVT: Julieta Charges/Coding Visit Charges Inpatient E&M: 65847 Subs Hosp L2
[2022-05-24] MEDS: Insulin Lispro 100 UNIT/ML INSULN.PEN SC (10:55)
[2022-05-24 11:31] LABS: Bedside Glucose 178 mg/dL (74-106)
--- NOTE | 2022-05-24 13:36 | PCM.CONS.C ---
Assessment & Plan Assessment/Plan (1) DM2 (diabetes mellitus, type 2): QUALIFIERS: Diabetes mellitus manager long term care insulin use: without fdc use (2) Morbid obesity with BMI of 70 and over, adult: (3) BEATRIZ treated with BiPAP: (4) Chronic anticoagulation: (5) Persistent atrial fibrillation: (6) CHF (congestive heart failure): PLAN: Plan 47-year-old patient with history of persistent atrial fibrillation Has been on rate control as well has been on anticoagulation Eliquis On the last echocardiogram his EF ranges 50-55% and this admission With no significant valve abnormality Has moderate left atrial enlargement Other medical problem include morbid obesity, obstructive sleep apnea, type 2 diabetes mellitus, essential hypertension And also had atypical symptoms of chest pain. Which resolved Cardiac care plan recommendations; 1. Continue with anticoagulation and rate control for A. fib 2. To follow-up with her primary seed laboratory assistant Dr. Belcher And discuss further evaluation with myocardial perfusion study which can be set up as an outpatient Due to morbid obesity possible coronary CTA HPI Consult Data Date of Consult: 05/24/22 Attending Care Provider: Patient with morbid obesity, persistent atrial fibrillation and symptoms of shortness of breath HPI Narrative Reason for Consultation: Persistent atrial fibrillation HPI Narrative: FAIZA TONEY, is a 47 M who presents [facility] Medical History Essential hypertension Morbid obesity with BMI of 70 and over, adult New onset atrial fibrillation BEATRIZ treated with BiPAP Persistent atrial fibrillation Home Medications lisinopril 10 mg tablet 10 mg PO DAILY BLOOD PRESSURE 09/22/20 [History Last Taken 05/21/22] metformin 500 mg 24 hr tablet,extended release 500 mg PO DAILY DIABETES 09/22/20 [History Last Taken Unknown] albuterol sulfate 90 mcg/actuation aerosol inhaler 1 inh inhalation Q8H PRN shortness of breath or wheezing #8.5 grams 09/25/20 [Rx Last Taken 05/22/22] apixaban 5 mg tablet (Eliquis) 5 mg PO BID BLOOD THINNER 05/22/22 [History Last Taken 05/22/22] diltiazem HCl 180 mg capsule,extended release 24 hr 180 mg PO Q12 BLOOD PRESSURE 05/22/22 [History Last Taken 05/22/22] furosemide 40 mg tablet (Lasix) 40 mg PO DAILY EDEMA 05/22/22 [History Last Taken Unknown] multivitamin 1 tab PO DAILY HEALTH MAINTENANCE 05/22/22 [History Last Taken 05/21/22] Allergy/AdvReac Type Severity Reaction Status Date / Time No Known Allergies Allergy Verified 05/22/22 09:08 Family History Aunt Breast cancer Grandfather Cancer Liver Grandmother Muscular dystrophy Surgical History History of gastric restrictive surgery (~2010) Social History Smoking Status: Former smoker how long ago did patient quit smokin years ago alcohol intake: current alcohol intake frequency: holidays/special occasions only substance use type: does not use caffeine: Yes Type: carbonated beverages, coffee and tea Physical Exam Cardio Cardio Narrative: Patient seen and examined today at bedside and discussed with the nursing staff Sitting out in a chair, morbidly obese, no symptoms reported today Cardiac rhythm showed underlying atrial fibrillation. Cardiac exam S1-S2 is irregular Chest exam diminished air entry bilateral. Risk Stratification Risk Stratification Applicable: No Objective Data Vital Signs: Vital Signs Temp Pulse Resp BP Pulse Ox O2 Del Method O2 Flow Rate 98.1 F 96 18 135/83 H 93 Room Air 2 05/24/22 09:09 05/24/22 09:11 05/24/22 09:09 05/24/22 09:09 05/24/22 09:09 05/24/22 09:09 05/24/22 07:28 Oxygen Flow Rate (L/min) 2 Oxygen Delivery Method Room Air Weight: 482 lb 15.996 oz Body Mass Index (BMI) 69.2 Intake & Output: Intake and Output for Last 24 Hours 05/22/22 05/23/22 05/24/22 23:59 23:59 23:59 Intake Total 597.25 / 912.25 1647.0 / 1887.0 740 / 740 Balance 597.25 / 912.25 1647.0 / 1887.0 740 / 740 Lab / Micro Data Result Diagrams: 05/23/22 06:25 05/23/22 06:25 Labs: Laboratory Results - last 24 hr 05/23/22 16:29: POC Glucose 111 H 05/23/22 21:31: POC Glucose 114 H 05/24/22 06:04: POC Glucose 104 05/24/22 10:53: POC Glucose 178 H Rhythm Strip Rhythm Strip: A-fib Rate: 154 Cardiology Labs/Tests Rhythm: EKG: ECHO: Stress Test: Cardiac Cath: PCI: CT Surgery: Holter monitor: EPS: PPM: CXR: Chest CT Scan:
--- NOTE | 2022-05-24 14:13 | DS.PCM_ITS ---
Providers Date of Admission: 05/22/22 Primary Care Physician: Dr. 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 (2) Morbid obesity with BMI of 70 and over, adult: Status: Chronic Code(s): E66.01 - Morbid (severe) obesity due to excess calories; Z68.45 - Body mass index [BMI] 70 or greater, adult (3) BEATRIZ treated with BiPAP: Status: Acute Code(s): G47.33 - Obstructive sleep apnea (adult) (pediatric) (4) Chronic anticoagulation: Status: Acute Code(s): Z79.01 - intermediate designer (current) use of anticoagulants (5) Persistent atrial fibrillation: Status: Acute Code(s): I48.19 - Other persistent atrial fibrillation (6) CHF (congestive heart failure): Status: Acute Code(s): I50.9 - Heart failure, unspecified Plan 1. A. fib with RVR/HTN/HLD/morbid obesity ? BMI of 70, discussed lifestyle modifications he did have a previous gastric sleeve done about 10 years ago ?He has been able to stay off of the Cardizem drip for close to 24 hours now, he is on his home p.o. Cardizem +50 mg of metoprolol p.o. twice daily ? Will continue with his Lasix and lisinopril ? Continue with Eliquis ? His last echo was in 2020, repeat echo is unchanged ? Given the fact that he is still in A. fib despite having a normal rate we will consult cardiology 2. DM2 ? We will hold his metformin and place him on sliding scale insulin ? Accu-Cheks AC at bedtime ? We will continue to monitor and follow DVT: Eliquis Medications at Discharge Home Medications lisinopril 10 mg tablet 10 mg PO DAILY BLOOD PRESSURE 09/22/20 metformin 500 mg 24 hr tablet,extended release 500 mg PO DAILY DIABETES 09/22/20 albuterol sulfate 90 mcg/actuation aerosol inhaler 1 inh inhalation Q8H PRN shortness of breath or wheezing #8.5 grams 09/25/20 apixaban 5 mg tablet (Eliquis) 5 mg PO BID BLOOD THINNER 05/22/22 diltiazem HCl 180 mg capsule,extended release 24 hr 180 mg PO Q12 BLOOD PRESSURE 05/22/22 furosemide 40 mg tablet (Lasix) 40 mg PO DAILY EDEMA 05/22/22 multivitamin 1 tab PO DAILY HEALTH MAINTENANCE 05/22/22 metoprolol tartrate 25 mg tablet 50 mg PO BID #60 tabs 05/24/22 Hospital Course Operations None Procedures 2-D Echocardiogram Summary of Care Provided Minutes Spent on Discharge: 39 Hospital Course: Per HPI: FAIZA TONEY, is a 47 M who presents to the hospital with chest pain that started earlier today.? He says it is mostly located in the middle of his chest but does occasionally radiate up into his jaw.? He denies any significant palpitations and does not have any lightheadedness.? In the ER he was found to be in A. fib with RVR, he does have a known he of A. fib and is on rate control medication for this.? Initial bone ER was unremarkable at 11 and repeat is down to 10. Hospital Course: 1. A. fib with RVR/HTN/HLD/morbid obesity?47-year-old male with a BMI of 70 presents to the hospital with chest pain. He was tachycardic with A. fib and RVR, once his heart rate came down his chest pain resolved. His troponins never lee and echo was unremarkable and unchanged from 2020. He was started on his p.o. Cardizem as well as 50 mg of metoprolol twice daily. His heart rate is controlled however he was still in A. fib therefore cardiology was consulted who felt that it was okay for him to go home that he did not need to be on an antiarrhythmic. 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 I discussed with him the plan for discharge today he expressed understanding of the risk benefits going home and would like to go home today. 2. Type 2 diabetes is a chronic medical condition which complicates care. His home medications were continued where appropriate Weight / BMI Weight Weight: 482 lb 15.996 oz Body Mass Index (BMI) 69.2 ABG / Lab / Microbiology Data Result Diagrams: 05/23/22 06:25 05/23/22 06:25 Laboratory: Laboratory Results - last 24 hr 05/23/22 16:29: POC Glucose 111 H 05/23/22 21:31: POC Glucose 114 H 05/24/22 06:04: POC Glucose 104 05/24/22 10:53: POC Glucose 178 H D/C Instructions Discharge Diet: Low fat / Low cholesterol and Carb Control Diet Call your doctor if you observe: Fever of 101 or Higher, Shortness of breath, Dizziness, Fainting spells, Swelling in the ankles, Chest pain and Increased palpitations (irregular heartbeat) Meaningful Use Info Meaningful Use Diagnoses (Choose all that apply): None applicable Discharge Plan Admission Admit Date/Time: 05/22/22 11:15 Attending Provider: Shmuel Cox Primary Care Provider: Dieudonne Dinero Consulting Providers: Mitch Parker Discharge Orders/Prescriptions Prescriptions: New metoprolol tartrate 25 mg Tablet 50 mg PO BID Qty: 60 0RF Continued lisinopril 10 MG tablet 10 mg PO DAILY metformin 500 MG tablet,ER annia.retention 24 hr 500 mg PO DAILY albuterol sulfate 90 mcg/actuation HFA aerosol inhaler 1 inh inhalation Q8H PRN (Reason: shortness of breath or wheezing) Qty: 8.5 0RF multivitamin Tablet 1 tab PO DAILY furosemide [Lasix] 40 mg tablet 40 mg PO DAILY diltiazem HCl 180 mg capsule,extended release 24hr 180 mg PO Q12 Eliquis 5 mg tablet 5 mg PO BID Referrals / Follow Up: Mal Belcher MD [Med Staff - Active Staff] - Within 3 Months Dieudonne Dienro MD [Primary Care Provider] - Within 1 Week Disposition Disposition (needs filled in before D/C Order can be placed): Home, Self Care Charges/Coding Visit Charges Inpatient E&M: 55185 Disch Hosp
== END 2022-05-24 15:19 | disposition home or self-care (01) | DRG 309 ==
LOC: ED 11:10 → PCU 11:31
PROVIDERS: Admitting Provider Family Medicine; Emergency Provider Emergency Medicine; PCP Family Medicine; Visit Provider Family Medicine
DX: I48.19 Other persistent atrial fibrillation (principal); Z68.45 Body mass index [BMI] 70 or greater, adult; I11.0 Hypertensive heart disease with heart failure; I50.9 Heart failure, unspecified; E66.01 Morbid (severe) obesity due to excess calories; E11.9 Type 2 diabetes mellitus without complications; G47.33 Obstructive sleep apnea (adult) (pediatric); Z79.01 Long term (current) use of anticoagulants; Z79.84 Long term (current) use of oral hypoglycemic drugs; Z79.899 Other long term (current) drug therapy; Z87.891 Personal history of nicotine dependence
CPT/HCPCS: 36415; 71045; 80048; 82962; 84443; 84484; 85025; 93005; 93306; 99285; Q9957; A4216; C8929

== ENCOUNTER 2024-08-09 13:09 | Emergency (ER) | payer BC, SELFPAY ==
[2024-08-09 13:09] VITALS: BP 118/95; PULSE 88; RESP 18; TEMP 36.4; O2SAT 96
--- NOTE | 2024-08-09 14:59 | EX.ED.UPPERE ---
HPI History of Present Illness HPI Narrative: 49-year-old male complaining of a rash to his right elbow area of his right arm for the last 1-1/2 weeks. Denies any fever or chills. No trauma. Chief Complaint: Upper Extremity Injury Informant: patient Occured/Mechanism Mechanism/Context: No injury and No blunt trauma Onset/Context/Timing Onset: Weeks (1 to 1-1/2 weeks.) Timing: Continuous Current Severity: Mild Maximum Severity: Mild Associated Symptoms Associated Symptoms: Negative for Parasthesia, Weakness or Loss of Funtion Narrative Narrative: 49-year-old male [id number] the rash around his right elbow. Denies any fall injury or trauma. No fever or chills. No significant pain. Prior similar symptoms: No Recent Illness/Hospitalization: No [facility] Medical History Morbid obesity with BMI of 70 and over, adult Chronic anticoagulation CHF (congestive heart failure) Persistent atrial fibrillation Essential hypertension BEATRIZ treated with BiPAP DM2 (diabetes mellitus, type 2) New onset atrial fibrillation Home Medications ?Medication ?Instructions ?Recorded ?Last Taken ?Type lisinopril 10 mg tablet 10 mg PO DAILY BLOOD PRESSURE 09/22/20 05/21/22 History metformin 500 mg 24 hr 500 mg PO DAILY DIABETES 09/22/20 Unknown History tablet,extended release (gastric retention) albuterol sulfate 90 mcg/actuation 1 inh inhalation Q8H PRN shortness 09/25/20 05/22/22 Rx aerosol inhaler of breath or wheezing #8.5 grams apixaban 5 mg tablet (Eliquis) 5 mg PO BID BLOOD THINNER 05/22/22 05/22/22 History furosemide 40 mg tablet (Lasix) 40 mg PO DAILY EDEMA 05/22/22 Unknown History multivitamin 1 tab PO DAILY HEALTH MAINTENANCE 05/22/22 05/21/22 History metoprolol tartrate 100 mg tablet 100 mg PO BID #180 tabs 07/05/24 Unknown Rx diltiazem HCl 240 mg 240 mg PO .COMPLEX #180 caps 07/08/24 Unknown Rx capsule,extended release 24 hr cephalexin 500 mg capsule 500 mg PO Q6 #40 CAPSULES 08/09/24 Unknown Rx Allergy/AdvReac Type Severity Reaction Status Date / Time No Known Allergies Allergy Verified 08/09/24 13:09 Family History Aunt Breast cancer Grandfather Cancer Liver Grandmother Muscular dystrophy Surgical History History of gastric restrictive surgery (~2010) Social History Smoking Status: Former smoker how long ago did patient quit smokin years ago alcohol intake: current alcohol intake frequency: holidays/special occasions only substance use type: does not use caffeine: Yes Type: carbonated beverages, coffee and tea ROS ROS ED ROS Narrative Rash right elbow. Denies fever or chills. Denies illness. No itching. Constitutional Constitutional ED: Denies chills or fever(s) Eyes Eyes: Denies blurry vision ENT ENT ED: Denies ear pain Cardiovascular Cardiovascular: Denies chest pain Respiratory/Chest Respiratory/Chest: Denies cough or dyspnea Gastrointestinal Gastrointestinal: Denies abdominal pain or constipation Genitourinary Genitourinary ED: Denies dysuria or hematuria Musculoskeletal Musculoskeletal: Denies myalgias Integumentary Reports rash; Denies abscess Neurologic Neurologic: Denies headache(s) Psychiatric Psychiatric: Denies anxiety or depression Endocrine Endocrinology: Denies cold intolerance Hematologic/Lymphatic Hematologic/Lymphatic: Denies easy bleeding, easy bruising or lymphadenopathy Allergic/Immunologic Allergic/Immunologic ED: Denies mouth swelling, tongue swelling or urticaria EXAM Physical Exam Narrative Exam Narrative: Well-appearing 49-year-old male vital signs are stable afebrile. Sitting upright in bed. H EENT exam pupils round react light. Neck nontender no lymphadenopathy. Lungs clear to auscultation bilaterally. Heart regular rhythm rate about 90 no murmur. Chest wall ribs nontender. Abdomen soft nontender. No peritoneal signs. Moving all 4 extremities. Neurovascularly intact. 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 He has a normal radial pulse. He has normal flexion extension of his wrist full flexion extension of his right elbow and shoulder. There is no axillary lymphadenopathy. He has a rash behind his right elbow that is red. It does not yemi. He has dry skin. It is not tender to palpation. There is no lymphangitic streaking. There is no axillary lymphadenopathy. Const Vital Signs: 08/09/24 13:09 Temperature 97.6 F L Temperature Source Temporal Pulse Rate 88 Respiratory Rate 18 Blood Pressure 118/95 H Blood Pressure Mean 102 Pulse Ox 96 Oxygen Delivery Method Room Air Positive well nourished, well developed and obese; Negative for cachectic, contractures or unkempt General Appearance ED: well developed; Negative for unkempt, cachectic, contractures, cyanotic or diaphoretic Nutritional Appearance: obese; Negative for cachectic HEENT Reports moist mucous membranes normocephalic and atraumatic Eyes PERRL and EOMs intact bilaterally Neck full ROM and supple General: Negative for tenderness Chest Wall inspection of chest normal and palpation of chest normal Resp normal respiratory effort and clear to auscultation bilaterally Effort and Inspection: Negative for pain with movement Auscultation: Negative for rales, rhonchi, wheezes, diminished lung sounds or other Cardio regular rate, regular rhythm, S1 normal heart sound, S2 normal heart sound and no murmurs Rate: Negative for bradycardia or tachycardic Rhythm: Negative for abnormal rhythm GI non-tender, non-distended and no masses Inspection: Negative for abdominal distention Auscultation: normoactive bowel sounds Palpation: soft; Negative for tender or guarding Back/Spine no CVA tenderness General Back: Negative for CVA tenderness Cervical Spine: Negative for cervical spine tenderness Thoracic Spine / Upper Back: Negative for thoracic spinal tenderness Lumbar Spine / Lower Back: Negative for lumbar spinal tenderness or straight leg raise negative bilaterally Extremity normal to inspection and full ROM General Extremety ED: Negative for edema or other findings General Extremity: Negative for edema or other findings Neuro oriented x3, CN's II-XII intact bilaterally, moves all extremities, no focal motor deficits and no sensory deficits noted Sensorium / Orientation: alert, oriented to person, oriented to place and oriented to time; Negative for orientation impaired, lethargic or stuporous Motor Exam: strength 5/5 throughout Psych mental status grossly normal Appearance: Negative for unkempt Attitude: No agitated Mood & Affect: Negative for depressed, anxious or tearful Skin General Skin Exam: Negative for petechiae Lesions: no lesions Rashes: no rashes Trauma: Negative for no lacerations or abrasions, abrasion, laceration or puncture MDM MDM MDM Narrative Medical decision making narrative: 49-year-old male with a rash along his right elbow potentially could be cellulitis. I do not he is allergic reaction he is having no itching. He also has dry skin. This will be treated as a cellulitis. Placed on Keflex 4 times a day for 10 days. Follow-up with his doctor if not improving. Return if worse. He does not need any labs. There is no bruising or petechiae. I do not think it is secondary to him being on Eliquis. Discharge Plan Triage Chief Complaint: Upper Extremity Injury ED Provider: Noel Saleh Dx/Rx/DC Orders Clinical Impression: Cellulitis Instructions: ED Cellulitis Prescriptions: New cephalexin 500 mg capsule 500 mg PO Q6 Qty: 40 0RF No Action lisinopril 10 MG tablet 10 mg PO DAILY metformin 500 MG tablet,ER annia.retention 24 hr 500 mg PO DAILY albuterol sulfate 90 mcg/actuation HFA aerosol inhaler 1 inh inhalation Q8H PRN (Reason: shortness of breath or wheezing) Qty: 8.5 0RF multivitamin Tablet 1 tab PO DAILY furosemide [Lasix] 40 mg tablet 40 mg PO DAILY Eliquis 5 mg tablet 5 mg PO BID metoprolol tartrate 100 mg tablet 100 mg PO BID Qty: 180 3RF diltiazem HCl 240 mg capsule,extended release 24hr 240 mg PO .COMPLEX Qty: 180 3RF Rx Instructions: 240 mg orally twice a day (for rapid HR) Primary Care Provider: Dieudonne Dinero Referrals: Dieudonne Dinero MD [Primary Care Provider] - Activity Restrictions/Additional Instructions: This appears to be an infection of the skin on your elbow called cellulitis. Take the antibiotic 1 pill 4 times a day till gone. Follow-up with your doctor if not improving or return to emergency department if gets worse or you develop a fever. Also use a skin moisturizer to help with the dry skin. Print Language: Citizen Of [place] Disposition Disposition: Home, Self Care
[2024-08-09] MEDS: Cephalexin 250 MG Capsule 500 MG PO (15:05)
== END 2024-08-09 15:07 | disposition home or self-care (01) ==
PROVIDERS: Emergency Provider Emergency Medicine; PCP Family Medicine; Visit Provider Emergency Medicine
DX: L03.113 Cellulitis of right upper limb (principal); I11.0 Hypertensive heart disease with heart failure; I50.9 Heart failure, unspecified; I48.19 Other persistent atrial fibrillation; E11.9 Type 2 diabetes mellitus without complications; G47.33 Obstructive sleep apnea (adult) (pediatric); Z79.01 Long term (current) use of anticoagulants; Z79.84 Long term (current) use of oral hypoglycemic drugs; Z87.891 Personal history of nicotine dependence
CPT/HCPCS: 99282